=== PATIENT | female | born 1955 | race Caucasian/White ===

== ENCOUNTER 2017-08-28 15:19 | Emergency (ER) | payer OTHER ==
[~2017-08-28] VITALS: Ht 167.6 cm; Wt 86.2 kg
[~2017-08-28 15:19] MED LIST: ASPI81CH43; ATEN-60; CYCL-181; LEVO137T19; NORTRIPTYLINE; OVAR; PANTPAK; PREDPOW63; PREMARIN; PROVASTATIN
[2017-08-28 16:17] LABS: Albumin 3.8 g/dL (3.4-5.0); Alkaline Phosphatase 94 U/L (45-117); Anion Gap 9 (5-15); Aspartate Aminotransferase 44 U/L (15-37); BUN/Creatinine Ratio 17.4; Bilirubin, Total 0.3 mg/dL (0.2-1.0); Blood Urea Nitrogen 12 mg/dL (7-18); Calcium 9.3 mg/dL (8.5-10.1); Carbon Dioxide 22 mmol/L (21-32); Chloride 105 mmol/L (98-107); GFR African American 111 mL/min; GFR Non-African American 92 mL/min; Glucose 104 mg/dL (74-106); Potassium 3.8 mmol/L (3.5-5.1); Sodium 136 mmol/L (136-145); Total Protein 7.7 g/dL (6.4-8.2)
[2017-08-28 16:28] LABS: Basophils # (auto) 0 uL; Basophils % (auto) 0.3 % (0.0-2.0); Eosinophils # (auto) 0 uL; Eosinophils % (auto) 0.5 % (0.0-7.0); Hematocrit 41.5 % (36.0-46.0); Hemoglobin 14.1 g/dL (12.2-16.2); Lymphocytes # (auto) 1.4 uL; Lymphocytes % (auto) 15.9 % (10.0-50.0); Mean Corpuscular Hemoglobin 30.6 pg (28.0-32.0); Mean Platelet Volume 7.1 fL (6.9-10.8); Monocytes # (auto) 0.5 uL; Monocytes % (auto) 6.3 % (0.0-12.0); Neutrophils # (auto) 6.6 uL; Nucleated Red Blood Cells % 0.1 %; Platelet Count (auto) 239 10^3/uL (140-450); Red Cell Distribution Width 13.5 % (11.8-14.3); White Blood Cell 8.5 10^3/uL (4.4-10.8)
[2017-08-28 18:03] LABS: Urine Bilirubin Negative (Negative); Urine Blood Negative /uL (Negative); Urine Color Yellow (Yellow); Urine Glucose Normal (Normal); Urine Ketone Negative (Negative); Urine Nitrite Negative (Negative); Urine RBC <1 /hpf (0 - 4); Urine Squamous Epithelial Cell FEW /hpf (<5); Urine Urobilinogen Normal (Negative); Urine pH 6.5 (5.0-8.0)
[2017-08-28] MEDS ORDERED: MORPHINE SULF INJ 2 MG/ML SYRINGE 1ML IV ONE (20:00)
[2017-08-28] MEDS ORDERED: ONDANSETRON HCL 4 MG/2 ML VIAL IV ONE (20:00)
[2017-08-28 21:42] VITALS: BP 168/88
== END 2017-08-28 21:57 | disposition home or self-care (01) ==
LOC: EDBD 15:19 → ER 15:19
DX: R00.0 Tachycardia, unspecified (principal); I25.10 Atherosclerotic heart disease of native coronary artery without angina pectoris; K21.9 Gastro-esophageal reflux disease without esophagitis; E78.5 Hyperlipidemia, unspecified; I10 Essential (primary) hypertension; E07.9 Disorder of thyroid, unspecified; Z90.710 Acquired absence of both cervix and uterus; Z88.1 Allergy status to other antibiotic agents; Z90.49 Acquired absence of other specified parts of digestive tract
CPT/HCPCS: 36415; 71010; 80053; 81001; 84484; 85025; 93005; 96374; 96375; 99285; J2270; J2405

== ENCOUNTER 2019-03-28 19:52 | Emergency (ER) | payer OTHER ==
[~2019-03-28] VITALS: Ht 167.6 cm; Wt 83.9 kg
[2019-03-28] MEDS ORDERED: ONDANSETRON HCL 4 MG/2 ML VIAL IV ONE (20:30)
[2019-03-28] MEDS ORDERED: MORPHINE SULFATE 4 MG/ML SYR/VIAL IV ONE (20:30)
[2019-03-28 22:55] LABS: Basophils # (auto) 0 uL; Basophils % (auto) 0.5 % (0.0-2.0); Eosinophils # (auto) 0.1 uL; Eosinophils % (auto) 0.9 % (0.0-7.0); Hematocrit 42.3 % (36.0-46.0); Hemoglobin 14.1 g/dL (12.2-16.2); Lymphocytes # (auto) 1.6 uL; Lymphocytes % (auto) 15.6 % (10.0-50.0); Mean Corpuscular Hemoglobin 30.2 pg (28.0-32.0); Mean Corpuscular Hgb Conc. 33.4 g/dL (32.0-36.0); Mean Corpuscular Volume 90.4 fL (80.0-100.0); Monocytes # (auto) 0.6 uL; Monocytes % (auto) 5.4 % (0.0-12.0); Neutrophils % (auto) 77.6 % (37.0-80.0); Nucleated Red Blood Cells % 0.1 %; Platelet Count (auto) 217 10^3/uL (140-450); Red Blood Cells 4.69 10^6/uL (4.0-5.20); Red Cell Distribution Width 13.9 % (11.8-14.3); White Blood Cell 10.2 10^3/uL (4.4-10.8)
[2019-03-28] MEDS ORDERED: SODIUM CHLORIDE 0.9% 500 ML IV ONE (22:59)
[2019-03-28] MEDS ORDERED: ASPirin 81 mg TAB PO ONE (23:00)
[2019-03-28] MEDS ORDERED: FAMOTIDINE 20 MG TAB PO ONE (23:00)
[2019-03-28 23:12] LABS: Potassium 4.1 mmol/L (3.5-5.1)
[2019-03-28 23:13] LABS: Albumin 3.7 g/dL (3.4-5.0); BUN/Creatinine Ratio 21.2; Calcium 9.3 mg/dL (8.5-10.1); Magnesium 2.4 mg/dL (1.6-2.6)
[2019-03-28 23:15] LABS: INR 0.89 (0.9-1.15); Partial Thromboplastin Time 30.8 sec (23.78-33.04); Prothrombin Time 9.6 sec (9.27-12.13)
[2019-03-28 23:17] LABS: Bilirubin, Total 0.3 mg/dL (0.2-1.0); Total Protein 7.4 g/dL (6.4-8.2)
[2019-03-29] MEDS ORDERED: IOHEXOL 350 MG/ML 100ML IJ ONE (04:45)
[2019-03-29] MEDS ORDERED: diphenhdrAMINE HCL 50 MG/1 ML VL IV ONE (05:00)
[2019-03-29] MEDS ORDERED: methylPREDNISolone SOD SUCC 125 MG/2 ML VL IV ONE (05:00)
[2019-03-29] MEDS ORDERED: ONDANSETRON HCL 4 MG/2 ML VIAL IV ONE (05:15)
[2019-03-29 06:34] VITALS: BP 135/88
== END 2019-03-29 08:24 | disposition home or self-care (01) ==
LOC: EDBD 19:52 → ER 19:59
DX: R07.89 Other chest pain (principal); I24.9 Acute ischemic heart disease, unspecified; I10 Essential (primary) hypertension; K21.9 Gastro-esophageal reflux disease without esophagitis; E78.5 Hyperlipidemia, unspecified; Z86.39 Personal history of other endocrine, nutritional and metabolic disease; Z90.49 Acquired absence of other specified parts of digestive tract; Z90.710 Acquired absence of both cervix and uterus; Z98.61 Coronary angioplasty status; J45.909 Unspecified asthma, uncomplicated; Z88.1 Allergy status to other antibiotic agents; Z88.2 Allergy status to sulfonamides; Z79.899 Other long term (current) drug therapy
CPT/HCPCS: 36415; 71045; 71275; 74018; 80053; 83690; 83735; 83880; 84484; 85025; 85379; 85610; 85730; 93005; 94761; 96374; 96375; 96376; 99285; J1200; J2270; J2405; J2930; Q9967; 96361

== ENCOUNTER 2022-05-18 08:02 | Emergency (ER) | payer OTHER ==
[~2022-05-18] VITALS: Ht 167.6 cm; Wt 79.8 kg
[2022-05-18] MEDS ORDERED: NITROGLYCERIN 0.4 MG SL TAB SL ONE (08:30)
[2022-05-18 08:41] LABS: Basophils # (auto) 0 10 ^3/uL (0-0.2); Basophils % (auto) 0.4 % (0.0-2.0); Eosinophils # (auto) 0 10 ^3/uL (0-0.8); Eosinophils % (auto) 0.5 % (0.0-7.0); Hematocrit 44.8 % (36.0-46.0); Hemoglobin 14.6 g/dL (12.2-16.2); Lymphocytes # (auto) 0.8 10 ^3/uL (0.4-5.4); Lymphocytes % (auto) 11.2 % (10.0-50.0); Mean Corpuscular Hemoglobin 29.9 pg (28.0-32.0); Mean Corpuscular Hgb Conc. 32.6 g/dL (32.0-36.0); Mean Corpuscular Volume 91.6 fL (80.0-100.0); Monocytes # (auto) 0.4 10 ^3/uL (0-1.3); Monocytes % (auto) 4.9 % (0.0-12.0); Neutrophils # (auto) 6.3 10 ^3/uL (1.6-8.6); Red Blood Cells 4.89 10^6/uL (4.0-5.20); Red Cell Distribution Width 13.2 % (11.8-14.3); White Blood Cell 7.6 10^3/uL (4.4-10.8)
[2022-05-18 08:57] LABS: Albumin 3.8 g/dL (3.4-5.0); Calcium 9.3 mg/dL (8.5-10.1); Magnesium 2.3 mg/dL (1.6-2.6); Potassium 3.8 mmol/L (3.5-5.1)
[2022-05-18 09:02] LABS: Bilirubin, Total 0.4 mg/dL (0.2-1.0); Total Protein 7.5 g/dL (6.4-8.2)
[2022-05-18 09:06] LABS: INR 1.01 (0.9-1.15); Partial Thromboplastin Time 30.5 sec (23.6-33.0)
[2022-05-18 09:54] LABS: Urine Bacteria NONE SEEN /hpf (None Seen); Urine Blood Negative /uL (Negative); Urine Specific Gravity 1.018 (1.001-1.035); Urine WBC <1 /hpf (0 - 5)
[2022-05-18 15:15] VITALS: BP 129/71
[2022-05-18] MEDS ORDERED: ALUM & MAG HYDROX-SIMETH LIQ(MAALOX) 30 ML PO ONE (15:15)
[2022-05-18] MEDS ORDERED: KETOROLAC TROMETH 30 MG/ML 1ML VIAL IV ONE (15:15)
[2022-05-18] MEDS ORDERED: LIDOCAINE VISCOUS 2% 15ML UD PO ONE (15:15)
[2022-05-18] MEDS ORDERED: DONNATAL 5ml ORAL Elix (BELLADONNA ALK-PHENOBARB) PO ONE (15:15)
== END 2022-05-18 16:04 | disposition home or self-care (01) ==
LOC: ER 08:02
DX: R07.89 Other chest pain (principal); I10 Essential (primary) hypertension; I25.10 Atherosclerotic heart disease of native coronary artery without angina pectoris; E78.5 Hyperlipidemia, unspecified; E03.9 Hypothyroidism, unspecified; K21.9 Gastro-esophageal reflux disease without esophagitis; Z90.49 Acquired absence of other specified parts of digestive tract; Z90.710 Acquired absence of both cervix and uterus; Z79.82 Long term (current) use of aspirin; Z79.899 Other long term (current) drug therapy; Z88.2 Allergy status to sulfonamides; Z88.1 Allergy status to other antibiotic agents; Z88.8 Allergy status to other drugs, medicaments and biological substances; Z20.822 Contact with and (suspected) exposure to COVID-19
CPT/HCPCS: 36415; 71045; 80053; 81001; 83735; 83880; 84443; 84484; 85025; 85610; 85730; 87426; 93005; 96374; 99285; J1885

== ENCOUNTER 2022-07-22 00:23 | Emergency (ER) | payer OTHER ==
[~2022-07-22] VITALS: Ht 167.6 cm; Wt 81.0 kg
[2022-07-22 01:34] LABS: Basophils # (auto) 0 10 ^3/uL (0-0.2); Basophils % (auto) 0.4 % (0.0-2.0); Eosinophils # (auto) 0.1 10 ^3/uL (0-0.8); Eosinophils % (auto) 0.7 % (0.0-7.0); Hematocrit 43.4 % (36.0-46.0); Hemoglobin 14.5 g/dL (12.2-16.2); Lymphocytes # (auto) 1.3 10 ^3/uL (0.4-5.4); Lymphocytes % (auto) 15.3 % (10.0-50.0); Mean Corpuscular Hemoglobin 30.1 pg (28.0-32.0); Mean Corpuscular Hgb Conc. 33.4 g/dL (32.0-36.0); Mean Corpuscular Volume 90.2 fL (80.0-100.0); Monocytes # (auto) 0.5 10 ^3/uL (0-1.3); Monocytes % (auto) 6.1 % (0.0-12.0); Neutrophils # (auto) 6.5 10 ^3/uL (1.6-8.6); Neutrophils % (auto) 77.5 % (37.0-80.0); Nucleated Red Blood Cells % 0.1 %; Red Blood Cells 4.82 10^6/uL (4.0-5.20); Red Cell Distribution Width 13.6 % (11.8-14.3); White Blood Cell 8.4 10^3/uL (4.4-10.8)
[2022-07-22 01:47] LABS: Albumin 4.2 g/dL (3.4-5.0); BUN/Creatinine Ratio 25.9; Calcium 9.5 mg/dL (8.5-10.1); Potassium 4.5 mmol/L (3.5-5.1)
[2022-07-22 01:50] LABS: Bilirubin, Total 0.3 mg/dL (0.2-1.0); Total Protein 7.4 g/dL (6.4-8.2)
[2022-07-22] MEDS ORDERED: IOHEXOL 300 MG/ML 100ML BOTTLE IJ ONE (08:43)
[2022-07-22] MEDS ORDERED: OLME20TA53 PO (12:07)
[2022-07-22 12:36] VITALS: BP 168/91
== END 2022-07-22 12:39 | disposition home or self-care (01) ==
LOC: ER 00:23
DX: R07.89 Other chest pain (principal); I10 Essential (primary) hypertension; J98.6 Disorders of diaphragm; J45.909 Unspecified asthma, uncomplicated; K21.9 Gastro-esophageal reflux disease without esophagitis; E78.5 Hyperlipidemia, unspecified; Z90.49 Acquired absence of other specified parts of digestive tract; Z88.1 Allergy status to other antibiotic agents; Z88.6 Allergy status to analgesic agent; Z98.61 Coronary angioplasty status; Z85.3 Personal history of malignant neoplasm of breast; Z88.8 Allergy status to other drugs, medicaments and biological substances
CPT/HCPCS: 36415; 71045; 74176; 80053; 83880; 84484; 85025; 93005

== ENCOUNTER 2023-05-18 14:56 | Emergency (ER) | payer OTHER ==
[~2023-05-18] VITALS: Ht 167.6 cm; Wt 84.5 kg
[~2023-05-18 14:56] MED LIST changes: +OLME20TA53 PO
[2023-05-18 15:56] LABS: Basophils # (auto) 0 10 ^3/uL (0-0.2); Basophils % (auto) 0.4 % (0.0-2.0); Eosinophils # (auto) 0.1 10 ^3/uL (0-0.8); Eosinophils % (auto) 1.3 % (0.0-7.0); Hematocrit 44.7 % (36.0-46.0); Lymphocytes # (auto) 1.6 10 ^3/uL (0.4-5.4); Lymphocytes % (auto) 19.5 % (10.0-50.0); Mean Corpuscular Hemoglobin 30.2 pg (28.0-32.0); Mean Corpuscular Hgb Conc. 33.6 g/dL (32.0-36.0); Mean Corpuscular Volume 89.8 fL (80.0-100.0); Monocytes # (auto) 0.6 10 ^3/uL (0-1.3); Monocytes % (auto) 7.6 % (0.0-12.0); Neutrophils # (auto) 5.8 10 ^3/uL (1.6-8.6); Neutrophils % (auto) 71.2 % (37.0-80.0); Nucleated Red Blood Cells % 0.1 %; Red Blood Cells 4.98 10^6/uL (4.0-5.20); Red Cell Distribution Width 13.3 % (11.8-14.3); White Blood Cell 8.2 10^3/uL (4.4-10.8)
[2023-05-18 16:17] LABS: Albumin 3.9 g/dL (3.4-5.0); Calcium 9.2 mg/dL (8.5-10.1); INR 0.99 (0.9-1.15); Magnesium 2.5 mg/dL (1.6-2.6); Partial Thromboplastin Time 30.6 SEC (24.5-34.5); Potassium 3.9 mmol/L (3.5-5.1)
[2023-05-18 16:20] LABS: Bilirubin, Total 0.3 mg/dL (0.2-1.0); Total Protein 7.2 g/dL (6.4-8.2)
[2023-05-18 16:33] LABS: Urine Bacteria NONE SEEN /hpf (None Seen); Urine Blood Negative /uL (Negative); Urine Specific Gravity 1.018 (1.001-1.035); Urine WBC 1 /hpf (0 - 5)
[2023-05-18] MEDS ORDERED: MECL1TAB31 PO (18:45)
[2023-05-18 19:45] VITALS: BP 137/79
== END 2023-05-18 19:50 | disposition home or self-care (01) ==
LOC: ER 14:56
DX: R42 Dizziness and giddiness (principal); J45.909 Unspecified asthma, uncomplicated; I25.10 Atherosclerotic heart disease of native coronary artery without angina pectoris; K21.9 Gastro-esophageal reflux disease without esophagitis; E78.5 Hyperlipidemia, unspecified; I10 Essential (primary) hypertension; Z85.9 Personal history of malignant neoplasm, unspecified; Z90.49 Acquired absence of other specified parts of digestive tract; Z90.710 Acquired absence of both cervix and uterus; Z98.890 Other specified postprocedural states
CPT/HCPCS: 36415; 70450; 70551; 71045; 80053; 81001; 82962; 83735; 83880; 84484; 85025; 85610; 85730; 93005

== ENCOUNTER 2023-06-14 10:02 | Inpatient (IN) | payer OTHER ==
[~2023-06-14] VITALS: Ht 198.1 cm; Wt 87.7 kg
[~2023-06-14 10:02] MED LIST changes: -ASPI81CH43; +ASPI81CH43 PO; +MECL1TAB31 PO
[2023-06-14 10:40] LABS: Basophils # (auto) 0 10 ^3/uL (0-0.2); Basophils % (auto) 0.3 % (0.0-2.0); Eosinophils # (auto) 0 10 ^3/uL (0-0.8); Eosinophils % (auto) 0.2 % (0.0-7.0); Hematocrit 42.4 % (36.0-46.0); Hemoglobin 14.3 g/dL (12.2-16.2); Lymphocytes # (auto) 1.2 10 ^3/uL (0.4-5.4); Lymphocytes % (auto) 15.4 % (10.0-50.0); Mean Corpuscular Hemoglobin 30.5 pg (28.0-32.0); Mean Corpuscular Hgb Conc. 33.7 g/dL (32.0-36.0); Mean Corpuscular Volume 90.4 fL (80.0-100.0); Monocytes # (auto) 0.4 10 ^3/uL (0-1.3); Monocytes % (auto) 4.6 % (0.0-12.0); Neutrophils # (auto) 6.4 10 ^3/uL (1.6-8.6); Neutrophils % (auto) 79.5 % (37.0-80.0); Nucleated Red Blood Cells % 0.2 %; Red Blood Cells 4.69 10^6/uL (4.0-5.20); Red Cell Distribution Width 13.3 % (11.8-14.3)
[2023-06-14 10:53] LABS: INR 0.98 (0.9-1.15); Prothrombin Time 10.3 sec (9.3-11.8)
[2023-06-14 11:00] LABS: Albumin 4.2 g/dL (3.4-5.0); Calcium 9.1 mg/dL (8.5-10.1); Magnesium 2.6 mg/dL (1.6-2.6); Potassium 3.8 mmol/L (3.5-5.1)
[2023-06-14] MEDS ORDERED: ASPirin 81 mg TAB PO ONE (11:00)
[2023-06-14] MEDS ORDERED: ONDANSETRON HCL 4 MG/2 ML VIAL IV ONE (11:00)
[2023-06-14] MEDS ORDERED: MORPHINE SULFATE INJ 2 MG/ml SYRG IV ONE (11:00)
[2023-06-14 11:06] LABS: BUN/Creatinine Ratio 24.2 (10.0-20.0); Bilirubin, Total 0.3 mg/dL (0.2-1.0); Total Protein 7.1 g/dL (6.4-8.2)
[2023-06-14 11:39] LABS: Urine Bacteria NONE SEEN /hpf (None Seen); Urine Blood Negative /uL (Negative); Urine Clarity Clear (Clear); Urine Color Yellow (Yellow); Urine Protein, UAD Negative (Negative); Urine Specific Gravity 1.012 (1.001-1.035); Urine Urobilinogen Normal (Negative); Urine WBC 2 /hpf (0 - 5)
[2023-06-14 12:19] VITALS: PULSE 56; RESP 14; O2SAT 98
[2023-06-14 14:04] LABS: COVID19 ANTIGEN SOFIA FIA NEGATIVE (NEGATIVE)
[2023-06-14] MEDS ORDERED: CYCLOBENZAPRINE HCL 10 MG TAB PO PRN (14:30)
[2023-06-14] MEDS ORDERED: HYDROcodone-ACET 5/325MG TAB PO PRN (14:30)
[2023-06-14] MEDS ORDERED: ONDANSETRON HCL 4 MG/2 ML VIAL IV PRN (14:30)
[2023-06-14] MEDS ORDERED: MORPHINE SULFATE INJ 2 MG/ml SYRG IV PRN (14:30)
[2023-06-14] MEDS ORDERED: NITROGLYCERIN 0.4 MG SL TAB SL PRN (14:30)
[2023-06-14] MEDS ORDERED: HYDROmorphone HCL 2 MG/ML VL/or syr IV PRN (14:30)
[2023-06-14] MEDS ORDERED: LEVOTHYROXINE SODIUM 50 MCG TAB PO ONE (15:15)
[2023-06-14] MEDS ORDERED: methylPREDNISolone SOD SUCC 40 MG/ML VL IV ONE (16:15)
[2023-06-14] MEDS ORDERED: NITROGLYCERIN 0.2MG/HR TOPICAL PATCH TD ONE (16:15)
[2023-06-14] MEDS ORDERED: CLOPIDOGREL 300 MG TAB PO ONE (16:15)
[2023-06-14 19:30] VITALS: PULSE 83; RESP 20; O2SAT 96
[2023-06-14] MEDS: ACETAMINOPHEN 325 MG TAB PO PRN (20:44)
[2023-06-14] MEDS ORDERED: PRAVASTATIN SODIUM 20 MG TAB PO SCH (22:00)
[2023-06-15] VITALS (11 sets, daily range): BP systolic 102–151; BP diastolic 63–74; PULSE 51–78; RESP 12–20; TEMP 97.6–98.7; O2SAT 92–96
[2023-06-15] MEDS: FAMOTIDINE (10MG/ML) 2ML VL IV SCH ×2 (00:44→10:42)
[2023-06-15] MEDS: diphenhdrAMINE HCL 50 MG/1 ML VL IV SCH ×2 (00:44→10:42)
[2023-06-15] MEDS: SODIUM CHLOR 0.9% PF (SALINE LOCK) 10ML VIAL/SYR IV SCH ×3 (01:13→14:00)
[2023-06-15] MEDS: ACETAMINOPHEN 325 MG TAB PO PRN (04:27)
[2023-06-15 06:42] LABS: Basophils # (auto) 0 10 ^3/uL (0-0.2); Basophils % (auto) 0.5 % (0.0-2.0); Eosinophils # (auto) 0.1 10 ^3/uL (0-0.8); Eosinophils % (auto) 1.1 % (0.0-7.0); Hematocrit 43.3 % (36.0-46.0); Hemoglobin 14.4 g/dL (12.2-16.2); Lymphocytes # (auto) 2.3 10 ^3/uL (0.4-5.4); Lymphocytes % (auto) 27.8 % (10.0-50.0); Mean Corpuscular Hemoglobin 30.3 pg (28.0-32.0); Mean Corpuscular Hgb Conc. 33.3 g/dL (32.0-36.0); Mean Corpuscular Volume 91.1 fL (80.0-100.0); Monocytes # (auto) 0.7 10 ^3/uL (0-1.3); Monocytes % (auto) 8.1 % (0.0-12.0); Neutrophils # (auto) 5.3 10 ^3/uL (1.6-8.6); Neutrophils % (auto) 62.5 % (37.0-80.0); Nucleated Red Blood Cells % 0.1 %; Red Blood Cells 4.76 10^6/uL (4.0-5.20); Red Cell Distribution Width 13.5 % (11.8-14.3); White Blood Cell 8.4 10^3/uL (4.4-10.8)
[2023-06-15 06:55] LABS: Potassium 3.5 mmol/L (3.5-5.1)
[2023-06-15 06:56] LABS: INR 1.03 (0.9-1.15); Partial Thromboplastin Time 30.2 SEC (24.5-34.5); Prothrombin Time 10.8 sec (9.3-11.8)
[2023-06-15 07:05] LABS: Albumin 3.6 g/dL (3.4-5.0); BUN/Creatinine Ratio 20.4 (10.0-20.0); Bilirubin, Total 0.4 mg/dL (0.2-1.0); Total Protein 6.8 g/dL (6.4-8.2)
[2023-06-15] MEDS ORDERED: methylPREDNISolone SOD SUCC 40 MG/ML VL IV SCH (10:00)
[2023-06-15] MEDS ORDERED: ENOXAPARIN SOD 40 MG/0.4 ML SYRINGE SC SCH (10:00)
[2023-06-15] MEDS ORDERED: ATENOLOL 25 MG TAB PO SCH (10:00)
[2023-06-15] MEDS: ASPirin 81 mg TAB PO SCH (10:39)
[2023-06-15] MEDS: CLOPIDOGREL BISULFATE 75 MG TAB PO SCH (10:39)
[2023-06-15] MEDS: LOSARTAN POTASSIUM 50 MG TAB PO SCH (10:41)
[2023-06-15] MEDS: PANTOPRAZOLE 40 MG TAB PO SCH (10:41)
[2023-06-15] MEDS ORDERED: LEVOTHYROXINE SODIUM 25 MCG TAB PO ONE (12:00)
[2023-06-15] MEDS ORDERED: ATORVASTATIN 20 MG TAB PO ONE (12:00)
[2023-06-15] MEDS ORDERED: GABAPENTIN 300 MG CAP PO ONE (12:00)
[2023-06-15] MEDS: GABAPENTIN 300 MG CAP PO SCH ×2 (14:00→22:17)
[2023-06-15] MEDS ORDERED: MIDAZOLAM HCL 2MG/2ML 2ml VIAL (1mg/ml) ONE (15:45)
[2023-06-15] MEDS ORDERED: SODIUM CHL 0.9% 0 ML ONE (15:45)
[2023-06-15] MEDS ORDERED: ANGIOMAX 250 MG VIAL IV ONE (15:45)
[2023-06-15] MEDS ORDERED: LIDOCAINE 2%HCL (LOCAL ANESTH.) INJ 20ML MDV ONE (15:46)
[2023-06-15] MEDS ORDERED: IOHEXOL 350 MG/ML 100ML IJ ONE ×2 (15:46→15:49)
[2023-06-15] MEDS ORDERED: HEPARIN SODIUM (PORCINE) 5000 UNITS/ML 1ML VIAL ONE (15:51)
[2023-06-15] MEDS ORDERED: fentaNYL CITRATE 100 MCG/2 ML VL ONE (15:51)
[2023-06-15] MEDS ORDERED: IODIXANOL 320MG/ML 100ML BTL IV ONE (15:51)
[2023-06-15] MEDS ORDERED: diphenhdrAMINE HCL 50 MG/1 ML VL ONE (16:04)
[2023-06-15] MEDS ORDERED: methylPREDNISolone SOD SUCC 125 MG/2 ML VL ONE (16:04)
[2023-06-15] MEDS ORDERED: DOCUSATE SOD 100 MG CAP PO ONE (16:30)
[2023-06-15] MEDS ORDERED: AML5T PO (18:37)
[2023-06-15] MEDS ORDERED: LEVO125T7 PO (18:39)
[2023-06-15] MEDS ORDERED: PANT40TA2 PO (18:40)
[2023-06-15] MEDS ORDERED: ROSU5TAB5 PO (18:41)
[2023-06-15] MEDS ORDERED: GABA-1250 PO (18:43)
[2023-06-15] MEDS ORDERED: BACL20TA PO (18:44)
[2023-06-15] MEDS ORDERED: HYDR-4798 PO (18:44)
[2023-06-15] MEDS ORDERED: DICY10CA PO (18:44)
[2023-06-15] MEDS ORDERED: HYDR-4924 PO (18:45)
[2023-06-15] MEDS ORDERED: EPIN0.1I11 IJ (18:46)
[2023-06-15] MEDS ORDERED: NITR0.4S29 SL (18:46)
[2023-06-15] MEDS ORDERED: MULT-1058 PO (18:48)
[2023-06-15] MEDS ORDERED: DOCU-94 PO (18:48)
[2023-06-15] MEDS ORDERED: ASCO500T11 PO (18:49)
[2023-06-15] MEDS ORDERED: CHOL20007 PO (18:49)
[2023-06-15] MEDS: ATORVASTATIN 20 MG TAB PO SCH (22:00)
[2023-06-16] MEDS: diphenhdrAMINE HCL 50 MG/1 ML VL IV SCH (00:04)
[2023-06-16] MEDS: ACETAMINOPHEN 325 MG TAB PO PRN ×2 (01:36→18:44)
[2023-06-16] MEDS: SODIUM CHLOR 0.9% PF (SALINE LOCK) 10ML VIAL/SYR IV SCH ×4 (01:40→22:07)
[2023-06-16 06:51] LABS: BUN/Creatinine Ratio 25.8 (10.0-20.0); Calcium 9.3 mg/dL (8.5-10.1)
[2023-06-16] MEDS: GABAPENTIN 300 MG CAP PO SCH ×3 (06:58→21:32)
[2023-06-16] MEDS ORDERED: LEVOTHYROXINE SODIUM 25 MCG TAB PO SCH (07:00)
[2023-06-16 08:00] VITALS: PULSE 55; RESP 18
[2023-06-16 09:00] VITALS: BP 115/80; PULSE 53; RESP 16; TEMP 97.3; O2SAT 95
[2023-06-16] MEDS: CLOPIDOGREL BISULFATE 75 MG TAB PO SCH (10:11)
[2023-06-16] MEDS: ASPirin 81 mg TAB PO SCH (10:16)
[2023-06-16] MEDS: LOSARTAN POTASSIUM 50 MG TAB PO SCH (10:16)
[2023-06-16] MEDS: PANTOPRAZOLE 40 MG TAB PO SCH (10:16)
[2023-06-16] MEDS: ATENOLOL 25 MG TAB PO SCH (10:17)
[2023-06-16] MEDS: DOCUSATE SOD 100 MG CAP PO PRN (14:26)
[2023-06-16] MEDS: diphenhdrAMINE HCL 25 MG CAP PO PRN ×2 (14:26→21:40)
[2023-06-16 17:00] VITALS: BP 114/62; PULSE 59; RESP 18; TEMP 97.9; O2SAT 97
[2023-06-16 20:00] VITALS: PULSE 59; PULSE 60; RESP 18
[2023-06-16] MEDS: ENOXAPARIN SOD 80 MG/0.8ML SYRINGE SC SCH (21:32)
[2023-06-16 22:00] VITALS: BP 109/54; PULSE 61; RESP 16; TEMP 97.6; O2SAT 95
[2023-06-16] MEDS: ATORVASTATIN 20 MG TAB PO SCH (22:00)
[2023-06-17] VITALS (7 sets, daily range): BP systolic 109–116; BP diastolic 46–65; PULSE 54–84; RESP 16–18; TEMP 97.6–98.7; O2SAT 95–98
[2023-06-17] MEDS: LEVOTHYROXINE SODIUM 112 MCG TAB PO SCH (06:51)
[2023-06-17] MEDS: GABAPENTIN 300 MG CAP PO SCH ×3 (06:51→21:47)
[2023-06-17] MEDS: LEVOTHYROXINE SODIUM 25 MCG TAB PO SCH (06:51)
[2023-06-17] MEDS: SODIUM CHLOR 0.9% PF (SALINE LOCK) 10ML VIAL/SYR IV SCH ×3 (06:52→21:48)
[2023-06-17] MEDS: ASPirin 81 mg TAB PO SCH (09:57)
[2023-06-17] MEDS: LOSARTAN POTASSIUM 50 MG TAB PO SCH (10:05)
[2023-06-17] MEDS: PANTOPRAZOLE 40 MG TAB PO SCH (10:06)
[2023-06-17] MEDS: CLOPIDOGREL BISULFATE 75 MG TAB PO SCH (10:06)
[2023-06-17] MEDS: ATENOLOL 25 MG TAB PO SCH (10:07)
[2023-06-17] MEDS: ENOXAPARIN SOD 80 MG/0.8ML SYRINGE SC SCH ×2 (10:07→21:48)
[2023-06-17] MEDS: DOCUSATE SOD 100 MG CAP PO PRN ×2 (13:30→20:20)
[2023-06-17] MEDS: ATORVASTATIN 20 MG TAB PO SCH (21:48)
[2023-06-17] MEDS: diphenhdrAMINE HCL 25 MG CAP PO PRN (22:57)
[2023-06-18] MEDS: ACETAMINOPHEN 325 MG TAB PO PRN (04:26)
[2023-06-18 04:45] VITALS: BP 108/48; PULSE 57; RESP 18; TEMP 98.6; O2SAT 95
[2023-06-18] MEDS: LEVOTHYROXINE SODIUM 112 MCG TAB PO SCH (06:06)
[2023-06-18] MEDS: LEVOTHYROXINE SODIUM 25 MCG TAB PO SCH (06:06)
[2023-06-18] MEDS: GABAPENTIN 300 MG CAP PO SCH ×2 (06:06→14:00)
[2023-06-18] MEDS: SODIUM CHLOR 0.9% PF (SALINE LOCK) 10ML VIAL/SYR IV SCH ×2 (06:09→14:00)
[2023-06-18 08:00] VITALS: PULSE 62; RESP 18
[2023-06-18 09:00] VITALS: BP 107/55; PULSE 58; RESP 19; TEMP 98.1; O2SAT 95
[2023-06-18] MEDS: ASPirin 81 mg TAB PO SCH (10:44)
[2023-06-18] MEDS: LOSARTAN POTASSIUM 50 MG TAB PO SCH (10:44)
[2023-06-18] MEDS: CLOPIDOGREL BISULFATE 75 MG TAB PO SCH (10:44)
[2023-06-18] MEDS: PANTOPRAZOLE 40 MG TAB PO SCH (10:44)
[2023-06-18] MEDS: ATENOLOL 25 MG TAB PO SCH (10:45)
[2023-06-18] MEDS: DOCUSATE SOD 100 MG CAP PO PRN (10:52)
[2023-06-18 12:07] VITALS: BP 107/55; PULSE 58; TEMP 36.7
[2023-06-18 12:50] VITALS: BP 119/69; PULSE 51; RESP 17; TEMP 97.9; O2SAT 93
== END 2023-06-18 14:50 | disposition home or self-care (01) | DRG 287 ==
LOC: ER 10:02 → TELE 14:27 → TELE-WESTW 22:31
PROVIDERS: ADMIT Internal Medicine; ATTEND Student in an Organized Health Care Education/Training Program
PROC: B211YZZ Fluoroscopy of Multiple Coronary Arteries using Other Contrast (ICD-10-PCS; principal; 2023-06-14)
PROC: 4A023N7 Measurement of Cardiac Sampling and Pressure, Left Heart, Percutaneous Approach (ICD-10-PCS; 2023-06-14)
DX: I24.9 Acute ischemic heart disease, unspecified (principal); E88.40 Mitochondrial metabolism disorder, unspecified; I50.32 Chronic diastolic (congestive) heart failure; I42.9 Cardiomyopathy, unspecified; I25.10 Atherosclerotic heart disease of native coronary artery without angina pectoris; E66.9 Obesity, unspecified; E03.9 Hypothyroidism, unspecified; E78.5 Hyperlipidemia, unspecified; K21.9 Gastro-esophageal reflux disease without esophagitis; I11.0 Hypertensive heart disease with heart failure; K74.60 Unspecified cirrhosis of liver; J45.909 Unspecified asthma, uncomplicated; Z20.822 Contact with and (suspected) exposure to COVID-19; Z88.0 Allergy status to penicillin; Z98.61 Coronary angioplasty status; Z88.2 Allergy status to sulfonamides; Z88.8 Allergy status to other drugs, medicaments and biological substances; Z88.1 Allergy status to other antibiotic agents; Z91.041 Radiographic dye allergy status; Z79.82 Long term (current) use of aspirin; Z79.899 Other long term (current) drug therapy; Z90.49 Acquired absence of other specified parts of digestive tract; Z90.710 Acquired absence of both cervix and uterus; Z68.22 Body mass index [BMI] 22.0-22.9, adult; Z85.3 Personal history of malignant neoplasm of breast; Z90.13 Acquired absence of bilateral breasts and nipples
CPT/HCPCS: 36415; 36600; 71045; 76937; 78582; 80048; 80053; 81001; 82805; 83036; 83735; 83880; 84443; 84484; 85025; 85379; 85610; 85730; 86850; 86900; 86901; 87426; 93005; 93306; 93458; 93970; 96374; 96376; 99152; 99291; G0378; J2250; J2405; J3490; Q9967

== ENCOUNTER 2023-06-24 20:42 | Emergency (ER) | payer OTHER ==
[~2023-06-24] VITALS: Ht 165.1 cm; Wt 81.8 kg
[~2023-06-24 20:42] MED LIST changes: +AML5T PO; +ASCO500T11 PO; +BACL20TA PO; +CHOL20007 PO; -CYCL-181; +DICY10CA PO; +DOCU-94 PO; +EPIN0.1I11 IJ; +GABA-1250 PO; +HYDR-4798 PO; +HYDR-4924 PO; +LEVO125T7 PO; -LEVO137T19; -MECL1TAB31 PO; +MULT-1058 PO; +NITR0.4S29 SL; -NORTRIPTYLINE; -OLME20TA53 PO; -OVAR; +PANT40TA2 PO; -PANTPAK; -PREDPOW63; -PREMARIN; -PROVASTATIN; +ROSU5TAB5 PO
[2023-06-24] MEDS ORDERED: IBUPROFEN 600 MG TAB PO ONE (21:45)
[2023-06-24 21:59] LABS: Basophils # (auto) 0 10 ^3/uL (0-0.2); Basophils % (auto) 0.3 % (0.0-2.0); Eosinophils # (auto) 0 10 ^3/uL (0-0.8); Eosinophils % (auto) 0.2 % (0.0-7.0); Hematocrit 41.1 % (36.0-46.0); Hemoglobin 13.6 g/dL (12.2-16.2); Lymphocytes # (auto) 0.7 10 ^3/uL (0.4-5.4); Lymphocytes % (auto) 6.3 % (10.0-50.0); Mean Corpuscular Hemoglobin 29.6 pg (28.0-32.0); Mean Corpuscular Hgb Conc. 33.1 g/dL (32.0-36.0); Mean Corpuscular Volume 89.3 fL (80.0-100.0); Monocytes # (auto) 0.7 10 ^3/uL (0-1.3); Monocytes % (auto) 6.5 % (0.0-12.0); Neutrophils % (auto) 86.7 % (37.0-80.0); Nucleated Red Blood Cells % 0.1 %; Red Blood Cells 4.61 10^6/uL (4.0-5.20); Red Cell Distribution Width 13.5 % (11.8-14.3); White Blood Cell 11.5 10^3/uL (4.4-10.8)
[2023-06-24 22:17] LABS: Albumin 3.9 g/dL (3.4-5.0); Calcium 9.1 mg/dL (8.5-10.1); Potassium 4.2 mmol/L (3.5-5.1)
[2023-06-24 22:21] LABS: BUN/Creatinine Ratio 20.4 (10.0-20.0); Bilirubin, Total 0.5 mg/dL (0.2-1.0); Total Protein 6.9 g/dL (6.4-8.2)
[2023-06-24 22:51] LABS: COVID19 ANTIGEN SOFIA FIA NEGATIVE (NEGATIVE)
[2023-06-24 23:14] LABS: Urine WBC None Seen /hpf (0 - 5)
[2023-06-24 23:22] LABS: Urine Bacteria FEW /hpf (None Seen); Urine Blood Negative /uL (Negative); Urine Clarity Clear (Clear); Urine Color Yellow (Yellow); Urine Protein, UAD Negative (Negative); Urine Specific Gravity 1.002 (1.001-1.035); Urine Urobilinogen Normal (Negative)
[2023-06-24] MEDS ORDERED: MAALOX PLUS or MAALOX 30 ML PO ONE (23:45)
[2023-06-25 01:30] VITALS: BP 112/54; TEMP 97.9
[2023-06-25 01:35] VITALS: PULSE 64; RESP 16; O2SAT 95
[2023-06-25] MEDS ORDERED: ACETAMINOPHEN 325 MG TAB PO ONE (03:00)
[2023-06-25] MEDS ORDERED: guaiFENesin-DM 100/10mg/5ml SYR PO ONE (03:45)
[2023-06-25] MEDS ORDERED: DexAMETHasone 4 MG TAB PO ONE (03:45)
[2023-06-25] MEDS ORDERED: AZITHROMYCIN 250 MG TAB PO ONE (03:45)
== END 2023-06-25 04:11 | disposition home or self-care (01) ==
LOC: ER 20:42 → EDBD 20:42 → ER 06-25 03:40
DX: B34.9 Viral infection, unspecified (principal); R06.02 Shortness of breath; K21.9 Gastro-esophageal reflux disease without esophagitis; E78.5 Hyperlipidemia, unspecified; I10 Essential (primary) hypertension; J45.909 Unspecified asthma, uncomplicated; Z90.49 Acquired absence of other specified parts of digestive tract; Z90.710 Acquired absence of both cervix and uterus; Z20.822 Contact with and (suspected) exposure to COVID-19; Z88.1 Allergy status to other antibiotic agents; Z88.2 Allergy status to sulfonamides; Z88.6 Allergy status to analgesic agent; Z91.041 Radiographic dye allergy status
CPT/HCPCS: 36415; 71045; 80053; 81001; 83880; 84484; 85025; 87426; 93005

== ENCOUNTER 2024-04-05 21:18 | Emergency (ER) | payer OTHER ==
[~2024-04-05] VITALS: Ht 167.6 cm; Wt 83.5 kg
[2024-04-05 21:52] VITALS: O2SAT 94
[2024-04-05 21:57] VITALS: BP 139/69; PULSE 75; RESP 16; TEMP 98.2; O2SAT 95
[2024-04-05 22:10] LABS: Basophils # (auto) 0 10 ^3/uL (0-0.2); Basophils % (auto) 0.4 % (0.0-2.0); Eosinophils # (auto) 0.1 10 ^3/uL (0-0.8); Eosinophils % (auto) 0.7 % (0.0-7.0); Hematocrit 45.9 % (36.0-46.0); Hemoglobin 15.1 g/dL (12.2-16.2); Lymphocytes # (auto) 1.5 10 ^3/uL (0.4-5.4); Lymphocytes % (auto) 15.2 % (10.0-50.0); Mean Corpuscular Hemoglobin 30.1 pg (28.0-32.0); Mean Corpuscular Volume 91.1 fL (80.0-100.0); Monocytes # (auto) 0.7 10 ^3/uL (0-1.3); Neutrophils # (auto) 7.4 10 ^3/uL (1.6-8.6); Neutrophils % (auto) 76.7 % (37.0-80.0); Nucleated Red Blood Cells % 0.1 %; Red Blood Cells 5.03 10^6/uL (4.0-5.20); Red Cell Distribution Width 13.3 % (11.8-14.3); White Blood Cell 9.6 10^3/uL (4.4-10.8)
[2024-04-05 22:11] LABS: Chloride 106 mmol/L (98-107); Potassium 4.1 mmol/L (3.5-5.1); Sodium 135 mmol/L (136-145)
[2024-04-05 22:12] LABS: Anion Gap 6 (5-15); Calcium 10.4 mg/dL (8.5-10.1); Carbon Dioxide 23 mmol/L (20-30)
[2024-04-05 22:17] LABS: BUN/Creatinine Ratio 13.8 (10.0-20.0); Blood Urea Nitrogen 9 mg/dL (9-23); Glucose 97 mg/dL (74-106)
== END 2024-04-05 23:22 | disposition home or self-care (01) ==
LOC: EDBD 21:18 → ER 21:18
DX: R06.00 Dyspnea, unspecified (principal); I10 Essential (primary) hypertension; E78.5 Hyperlipidemia, unspecified; K21.9 Gastro-esophageal reflux disease without esophagitis; J45.909 Unspecified asthma, uncomplicated; I25.10 Atherosclerotic heart disease of native coronary artery without angina pectoris; Z85.9 Personal history of malignant neoplasm, unspecified; Z98.890 Other specified postprocedural states
CPT/HCPCS: 36415; 71045; 80048; 83880; 84484; 85025; 93005

== ENCOUNTER 2024-06-23 23:11 | Emergency (ER) | payer OTHER ==
[~2024-06-23] VITALS: Ht 167.6 cm; Wt 81.0 kg
[2024-06-23] MEDS: DexAMETHasone SOD PHOS 10MG/1ML VIAL INJ IM ONE (23:45)
[2024-06-24 00:12] LABS: Basophils # (auto) 0 10 ^3/uL (0-0.2); Basophils % (auto) 0.3 % (0.0-2.0); Eosinophils # (auto) 0.1 10 ^3/uL (0-0.8); Eosinophils % (auto) 1.2 % (0.0-7.0); Hematocrit 44.4 % (36.0-46.0); Hemoglobin 14.8 g/dL (12.2-16.2); Lymphocytes # (auto) 1.6 10 ^3/uL (0.4-5.4); Lymphocytes % (auto) 21.7 % (10.0-50.0); Mean Corpuscular Hemoglobin 30.5 pg (28.0-32.0); Mean Corpuscular Hgb Conc. 33.4 g/dL (32.0-36.0); Mean Corpuscular Volume 91.4 fL (80.0-100.0); Monocytes # (auto) 0.5 10 ^3/uL (0-1.3); Neutrophils % (auto) 69.8 % (37.0-80.0); Red Blood Cells 4.86 10^6/uL (4.0-5.20); Red Cell Distribution Width 12.9 % (11.8-14.3); White Blood Cell 7.1 10^3/uL (4.4-10.8)
[2024-06-24 00:16] VITALS: PULSE 83; RESP 20; O2SAT 95
[2024-06-24 00:23] LABS: Alanine Aminotransferase 41 U/L (7-40); Albumin 4.5 g/dL (3.2-4.8); Alkaline Phosphatase 87 U/L (46-116); Anion Gap 11 (5-15); Aspartate Aminotransferase 40 U/L (13-40); BUN/Creatinine Ratio 16.3 (10.0-20.0); Blood Urea Nitrogen 8 mg/dL (9-23); Calcium 10.1 mg/dL (8.7-10.4); Carbon Dioxide 22 mmol/L (20-30); Chloride 104 mmol/L (98-107); Glucose 117 mg/dL (74-106); Lipase 35 U/L (12-53); Potassium 3.9 mmol/L (3.5-5.1); Sodium 137 mmol/L (136-145)
[2024-06-24 00:24] LABS: Bilirubin, Total 0.4 mg/dL (0.2-1.0); Total Protein 7.2 g/dL (5.7-8.2)
[2024-06-24] MEDS: diphenhdrAMINE HCL 50 MG/1 ML VL IM ONE (00:26)
[2024-06-24 02:50] VITALS: BP 110/53; PULSE 60; RESP 17; TEMP 98.4; O2SAT 97
== END 2024-06-24 03:08 | disposition home or self-care (01) ==
LOC: EDBD 23:11 → ER 23:11
DX: R07.89 Other chest pain (principal); T78.1XXA Other adverse food reactions, not elsewhere classified, initial encounter; I10 Essential (primary) hypertension; I25.10 Atherosclerotic heart disease of native coronary artery without angina pectoris; E78.5 Hyperlipidemia, unspecified; K21.9 Gastro-esophageal reflux disease without esophagitis; J45.909 Unspecified asthma, uncomplicated; Z85.9 Personal history of malignant neoplasm, unspecified; Z98.890 Other specified postprocedural states; Z88.8 Allergy status to other drugs, medicaments and biological substances; Z91.041 Radiographic dye allergy status; Z79.899 Other long term (current) drug therapy; X58.XXXA Exposure to other specified factors, initial encounter
CPT/HCPCS: 36415; 71045; 80053; 83605; 83690; 83880; 84484; 85025; 93005; 96372; 99285; J1200

== ENCOUNTER 2024-08-06 07:26 | Emergency (ER) | payer OTHER ==
[~2024-08-06] VITALS: Ht 167.6 cm; Wt 83.6 kg
[2024-08-06 08:06] LABS: Basophils # (auto) 0 10 ^3/uL (0-0.2); Basophils % (auto) 0.5 % (0.0-2.0); Eosinophils # (auto) 0.1 10 ^3/uL (0-0.8); Eosinophils % (auto) 1.5 % (0.0-7.0); Hematocrit 47.2 % (36.0-46.0); Lymphocytes # (auto) 1.4 10 ^3/uL (0.4-5.4); Lymphocytes % (auto) 19.1 % (10.0-50.0); Mean Corpuscular Hemoglobin 30.9 pg (28.0-32.0); Mean Corpuscular Hgb Conc. 33.9 g/dL (32.0-36.0); Mean Corpuscular Volume 91.2 fL (80.0-100.0); Monocytes # (auto) 0.5 10 ^3/uL (0-1.3); Monocytes % (auto) 6.5 % (0.0-12.0); Neutrophils # (auto) 5.4 10 ^3/uL (1.6-8.6); Neutrophils % (auto) 72.4 % (37.0-80.0); Platelet Count (auto) 245 10^3/uL (140-450); Red Blood Cells 5.18 10^6/uL (4.0-5.20); Red Cell Distribution Width 13.3 % (11.8-14.3); White Blood Cell 7.5 10^3/uL (4.4-10.8)
[2024-08-06 08:22] LABS: Alanine Aminotransferase 47 U/L (7-40); Albumin 5.1 g/dL (3.2-4.8); Alkaline Phosphatase 88 U/L (46-116); Anion Gap 7 (5-15); Aspartate Aminotransferase 34 U/L (13-40); BUN/Creatinine Ratio 20.7 (10.0-20.0); Bilirubin, Total 0.6 mg/dL (0.2-1.0); Blood Urea Nitrogen 12 mg/dL (9-23); Calcium 10.8 mg/dL (8.7-10.4); Carbon Dioxide 27 mmol/L (20-30); Chloride 104 mmol/L (98-107); Glucose 113 mg/dL (74-106); Sodium 138 mmol/L (136-145); Total Protein 7.4 g/dL (5.7-8.2)
[2024-08-06] MEDS: SODIUM CHLORIDE 0.9% 500 ML IVB ONE (08:26)
[2024-08-06 08:33] LABS: Magnesium 2.2 mg/dL (1.6-2.6)
[2024-08-06 08:45] LABS: Urine Bacteria FEW /hpf (None Seen); Urine Blood Negative /uL (Negative); Urine Clarity Turbid (Clear); Urine Color Yellow (Yellow); Urine Mucus FEW (None Seen); Urine Protein, UAD Negative (Negative); Urine Specific Gravity 1.019 (1.001-1.035); Urine Urobilinogen Normal (Negative); Urine WBC 2 /hpf (0 - 5); Urine pH 7.5 (5.0-9.0)
[2024-08-06] MEDS ORDERED: BISM262C44 PO (12:03)
[2024-08-06] MEDS ORDERED: METO-281 PO (12:03)
[2024-08-06 12:15] VITALS: BP 138/59; PULSE 64; RESP 17; TEMP 98.1; O2SAT 97
== END 2024-08-06 12:43 | disposition home or self-care (01) ==
LOC: ER 07:26
DX: R00.2 Palpitations (principal); K52.9 Noninfective gastroenteritis and colitis, unspecified; K90.49 Malabsorption due to intolerance, not elsewhere classified; R42 Dizziness and giddiness; K21.9 Gastro-esophageal reflux disease without esophagitis; E78.5 Hyperlipidemia, unspecified; I10 Essential (primary) hypertension; J45.909 Unspecified asthma, uncomplicated; Z88.1 Allergy status to other antibiotic agents; Z88.6 Allergy status to analgesic agent; Z88.2 Allergy status to sulfonamides; Z90.49 Acquired absence of other specified parts of digestive tract; Z90.710 Acquired absence of both cervix and uterus; Z91.041 Radiographic dye allergy status; Z98.61 Coronary angioplasty status; Z85.3 Personal history of malignant neoplasm of breast
CPT/HCPCS: 36415; 71046; 74176; 80053; 81001; 83690; 83735; 84443; 84484; 85025; 93005; 96360; 99285; J7040

== ENCOUNTER 2025-06-30 12:33 | Emergency (ER) | payer OTHER ==
[~2025-06-30] VITALS: Ht 167.6 cm; Wt 83.5 kg
[~2025-06-30 12:33] MED LIST changes: +BISM262C44 PO; +METO-281 PO
--- NOTE | 2025-06-30 14:06 | DVH ---
EXAM: XY CHEST PORTABLE HISTORY: CP, DIZZY COMPARISON: XY CHEST TWO VIEWS ROUTINE on DOS: 08/06/24, XY CHEST PORTABLE on DOS: 06/24/24, XY CHEST PO RTABLE on DOS: 04/05/24, XY CHEST PORTABLE on DOS: 06/24/23, XY CHEST PORTABLE on DOS: 06/16/23 TECHNIQUE: Portable AP view of the chest was performed. FINDINGS: No pneumothorax, consolidative infiltrates, or pulmonary edema. There is mild relative elevation of t he left hemidiaphragm. The heart is not enlarged. There is thoracic degenerative disc disease. There is mild thoracic dextroscoliosis. IMPRESSION: No acute intrathoracic process.
[2025-06-30 14:16] LABS: Hematocrit 44.4 % (36.0-46.0); Hemoglobin 15.0 g/dL (12.2-16.2); Mean Corpuscular Hemoglobin 30.2 pg (28.0-32.0); Mean Corpuscular Volume 89.6 fL (80.0-100.0); Nucleated Red Blood Cells % 0.1 %
--- NOTE | 2025-06-30 14:19 | DVH ---
EXAM: CT HEAD WITHOUT CONTRAST INDICATION: CP, DIZZY TECHNIQUE: CT of the head without intravenous contrast. Radiation Dose : 1. Head: CT Dose: CTDI volume is 55 mGy. Dose-length product is 1089.1 mGy*cm The dose indicators for CT are the volume Computed Tomography (CT) Dose Index (CTDIvol) and the Dose Length Product (DLP), and are measured in units of mGy and mGy-cm, respectively. These indicators are not patient dose, but values generated from the CT scanner acquisition factors. The report includes radiation exposure data for exposures received during this examination. COMPARISON: CT HEAD WITHOUT CONTRAST on DOS: 05/18/23, MRI BRAIN HEAD WO CONTRAST on DOS: 05/18/23 FINDINGS: There is no evidence of acute intracranial hemorrhage, extra-axial collection, mass effect, midline s hift, herniation or hydrocephalus. The ventricles, sulci and cisterns are age appropriate. The jimenez-white differentiation is intact. The visualized paranasal sinuses and mastoid air cells are clear. The surrounding soft tissues and osseous structures are unremarkable. IMPRESSION: No acute intracranial abnormality. Radiation optimization: All CT scans at this facility use at least one of these dose optimization edilberto hniques: automated exposure control mA and/or kV adjustment per patient size (includes targeted exam s where dose is matched to clinical indication) or iterative reconstruction.
[2025-06-30 14:34] LABS: Alanine Aminotransferase 40 U/L (7-40); Albumin 5.0 g/dL (3.2-4.8); Alkaline Phosphatase 95 U/L (46-116); Anion Gap 9 (5-15); BUN/Creatinine Ratio 14.8 (10.0-20.0); Blood Urea Nitrogen 9 mg/dL (9-23); Calcium 10.0 mg/dL (8.7-10.4); Carbon Dioxide 25 mmol/L (20-31); Chloride 104 mmol/L (98-107); Glucose 96 mg/dL (74-106); Magnesium 2.3 mg/dL (1.6-2.6); Potassium 3.9 mmol/L (3.5-5.1); Sodium 138 mmol/L (136-145); Total Protein 7.4 g/dL (5.7-8.2)
[2025-06-30 14:35] LABS: Bilirubin, Total 0.3 mg/dL (0.2-1.0)
[2025-06-30] MEDS: SODIUM CHLORIDE 0.9% 1,000 ML IV ONE (15:00)
--- NOTE | 2025-06-30 15:08 | ED.PDOC ---
HPI (NEURO) HPI Comments 69-year-old female presents with a chief complaint of dizziness, chest pressure, and nausea. Patient mentions that she feels "off-balance" even when her head is not moving. Patient also states that she has been having intermittent chest pressure for the past 2 weeks. Patient does have history of CAD with stent placement. Patient is currently on Macrobid for a UTI. PMHx: HTN, HLD, Thyroid Disease, UTI's, GERD, Asthma, CAD, Cancer PSHx: PTCA, Bladder Suspension, Mastectomy, Cholecystectomy, Appendectomy, Hysterectomy HPI: Poor Historian. Past Medical History: REVIEW OF SYSTEMS: CONSTITUTIONAL: Denies acute: fever, diaphoresis, chills, generalized weakness. HEAD: Denies acute: headache, photophobia Eyes: Denies acute: Double vision, vision loss, eye pain, eye discharge. EARS: Denies acute: tinnitus, hearing loss, ear discharge, ear pain, THROAT: Denies acute: sore throat, swelling, difficulty swallowing , pain with swallowing, change in voice. NECK: Denies acute: neck pain, neck swelling, stiff neck. HEART: Denies acute : palpitations, LUNGS: Denies acute: SOB, wheezing, cough, hemoptysis ABDOMEN: Denies acute: abdominal pain, Nausea, Vomiting, diarrhea, melena , hematemesis, hematochezia SKIN: Denies acute: rash, redness, lesions, itchiness. EXTREMITIES: Denies acute: calf pain, numbness, tingling, weakness, denies pain in extremity. Denies acute: Low back pain. Neuro: Denies acute: focal neurological deficit, motor or sensory focal neurological deficit, tremors, seizure like activity, confusion, change in mental status, loss of bowel or bladder function, cauda equina like symptoms. : Denies acute: dysuria, hematuria, flank pain, increase in urinary frequency. PSYCH: Denies acute: hallucination, suicidal ideation, homicidal ideation. FEMALE: Denies acute: abnormal vaginal bleeding, foul odor, unusual discharge. PHYSICAL EXAM: General: ----mild----acute distress, awake and alert. Head: normocephalic, atraumatic. Neck: supple, trachea is midline, no swelling. Throat: Normal phonation. Eyes:, no erythema, no purulent discharge, no proptosis, no icterus. Heart: regular rate, regular rhythm, no significant murmur appreciated. Lungs: no apparent respiratory distress, Able to speak in full sentences. No wheezing, no rhonchi, no crackles. No stridors Clear to auscultation bilaterally. Abdomen: non tender to palpation, non distended, soft, no guarding, no rebound, + bowel sounds. Obese Neuro: Awake, Alert, oriented to name, self, situation, follows commands GCS=15. Speech is normal. Skin: no petechia, no purpura, no cyanosis, non-pale, not jaundice. Lower extremities: --no - Pitting edema no deformity, no focal swelling, no calf TTP. Makes eye contact. moves all four extremities. Face: no apparent facial droop. Ambulating in the ED independently. PERRLA, EOM-I CN 2-12 are grossly intact, No nystagmus. ED COURSE: DISCLAIMER: This medical document was created using an electronic medical record system with voice recognition software and computerized dictation system. Although this document has been carefully reviewed, there might still be some phonetic and ty pographical errors. Occasional wrong-word or "sound-alike" substitutions may have occurred due to the inherent limitations of voice recognition software. These areas are purely typographical due to imperfections of the software programs and do not reflect any compromise in the patient's medical care. Please read the chart carefully and recognize, using context, where these substitutions have occurred. 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 Was a procedure done?: No Differential Diagnosis (SZ) General Weakness: Anemia, CVA, Dehydration, Dysrhythmia, Electrolyte imbalance, Encephalopathy, Guillain-Blessing, Hypoglycemia, Hypotension, Hypovolemia, Laby rinthitis, Meniere's disease, Myasthenia gravis, Myocardial infarction, Pulmonary embolus, Renal failure, Repiratory failure, TIA, VBI, Vertigo: central, Vertigo: peripheral, Vestibular neuronitis, Other (As far as his chest pain, Ddx include but not limitied to gastritis, musculoskeletal pain, radiculopathy, atypical chest pain, dissection, aneurysm, ACS, unstable angina, hiatal hernia, GERD, anxiety, costochondritis, PE, pneumothroax, neoplasm, cardiac ischemia, drug abuse, anemia.) X-Ray, Labs, Meds, VS Vital Signs Date Time Temp Pulse Resp B/P (MAP) Pulse Ox O2 Delivery O2 Flow Rate FiO2 06/30/25 19:35 98.1 84 17 158/70 (99) 96 98.1 06/30/25 18:34 97.9 74 16 109/82 (91) 96 97.9 06/30/25 12:45 76 06/30/25 12:34 97.8 87 13 157/75 97 97.8 Lab Test 06/30/25 17:57 06/30/25 15:29 06/30/25 14:02 06/30/25 12:40 Range/Units Troponin I High Sensitivity 3 L 4 4 </=34 ng/L White Blood Count 7.7 4.4-10.8 10^3/uL Red Blood Count 4.95 4.0-5.20 10^6/uL Hemoglobin 15.0 12.2-16.2 g/dL Hematocrit 44.4 36.0-46.0 % Mean Corpuscular Volume 89.6 80.0-100.0 fL Mean Corpuscular Hemoglobin 30.2 28.0-32.0 pg Mean Corpuscular Hemoglobin Concent 33.7 32.0-36.0 g/dL Red Cell Distribution Width 13.2 11.8-14.3 % Platelet Count 236 140-450 10^3/uL Mean Platelet Volume 6.5 L 6.9-10.8 fL Neutrophils (%) (Auto) 74.7 37.0-80.0 % Lymphocytes (%) (Auto) 15.9 10.0-50.0 % Monocytes (%) (Auto) 8.2 0.0-12.0 % Eosinophils (%) (Auto) 0.9 0.0-7.0 % Basophils (%) (Auto) 0.3 0.0-2.0 % Neutrophils # (Auto) 5.7 1.6-8.6 10 ^3/uL Lymphocytes # (Auto) 1.2 0.4-5.4 10 ^3/uL Monocytes # (Auto) 0.6 0-1.3 10 ^3/uL Eosinophils # (Auto) 0.1 0-0.8 10 ^3/uL Basophils # (Auto) 0 0-0.2 10 ^3/uL Nucleated Red Blood Cells 0.1 % Sodium Level 138 136-145 mmol/L Potassium Level 3.9 3.5-5.1 mmol/L Chloride Level 104 98-107 mmol/L Carbon Dioxide Level 25 20-31 mmol/L Anion Gap 9 5-15 Blood Urea Nitrogen 9 9-23 mg/dL Creatinine 0.61 0.550-1.02 mg/dL Glomerular Filtration Rate Calc 96 >90 mL/min BUN/Creatinine Ratio 14.8 10.0-20.0 Serum Glucose 96 74-106 mg/dL Lactic Acid Level 1.5 0.4-2.0 mmol/L Calcium Level 10.0 8.7-10.4 mg/dL Magnesium Level 2.3 1.6-2.6 mg/dL Total Bilirubin 0.3 0.2-1.0 mg/dL Aspartate Amino Transferase (AST) 47 H 13-40 U/L Alanine Aminotransferase (ALT) 40 7-40 U/L Alkaline Phosphatase 95 46-116 U/L B-Type Natriuretic Peptide 49.87 0-100 pg/mL Total Protein 7.4 5.7-8.2 g/dL Albumin 5.0 H 3.2-4.8 g/dL POC Glucose 183 H 70-106 mg/dl [address] [address] Ph: [phone] DIAGNOSTIC IMAGING Diagnostic Imaging Report : [id number] Signed PATIENT: MOSES CANTOR ACCT: [id number] UNIT: [id number] : 1955 LOC: ER ROOM / BED: / AGE / SEX: 69 / F ADM STATUS: REG ER SERVICE 1342 ORDERING PHYSICIAN: BIPIN HARGROVE DO PROCEDURE(s): HWOCT - HEAD WITHOUT CONTRAST REASON: CP, DIZZY ORDER NUMBER(s): [id number], ACCESSION NUMBER(s): [id number] EXAM: CT HEAD WITHOUT CONTRAST INDICATION: CP, DIZZY TECHNIQUE: CT of the head without intravenous contrast. Radiation Dose : 1. Head: CT Dose: CTDI volume is 55 mGy. Dose-length product is 1089.1 mGy*cm The dose indicators for CT are the volume Computed Tomography (CT) Dose Index (CTDIvol) and the Dose Length Product (DLP), and are measured in units of mGy and mGy-cm, respectively. These indicators are not patient dose, but values generated from the CT scanner acquisition factors. The report includes radiation exposure data for exposures received during this examination. COMPARISON: CT HEAD WITHOUT CONTRAST on DOS: 05/18/23, MRI BRAIN HEAD WO CONTRAST on DOS: 05/18/23 FINDINGS: There is no evidence of acute intracranial hemorrhage, extra-axial collection, mass effect, midline shift, herniation or hydrocephalus. The ventricles, sulci and cisterns are age appropriate. The jimenez-white differentiation is intact. The visualized paranasal sinuses and mastoid air cells are clear. The surrounding soft tissues and osseous structures are unremarkable. IMPRESSION: No acute intracranial abnormality. Radiation optimization: All CT scans at this facility use at least one of these dose optimization techniques: automated exposure control mA and/or kV adjustment per patient size (includes targeted exams where dose is matched to clinical indication) or iterative reconstruction. ATED BY: ARIAS LOJA MD DICTATED DATE/TIME: 06/30/251416 SIGNED BY: ARIAS LOJA MD SIGNED DATE/TIME: 06/30/251416 PATIENT: MOSES CANTOR ACCT: [id number] UNIT: [id number] : 1955 LOC: ER ROOM / BED: / AGE / SEX: 69 / F ADM STATUS: REG ER SERVICE 1342 ORDERING PHYSICIAN: BIPIN HARGROVE DO PROCEDURE(s): CXRP - CHEST PORTABLE REASON: CP, DIZZY ORDER NUMBER(s): [id number], ACCESSION NUMBER(s): [id number] EXAM: XY CHEST PORTABLE HISTORY: CP, DIZZY COMPARISON: XY CHEST TWO VIEWS ROUTINE on DOS: 08/06/24, XY CHEST PORTABLE on DOS: 06/24/24, XY CHEST PORTABLE on DOS: 04/05/24, XY CHEST PORTABLE on DOS: 06/24/23, XY CHEST PORTABLE on DOS: 06/16/23 TECHNIQUE: Portable AP view of the chest was performed. FINDINGS: No pneumothorax, consolidative infiltrates, or pulmonary edema. There is mild relative elevation of the left hemidiaphragm. The heart is not enlarged. There is thoracic degenerative disc disease. There is mild thoracic dextroscoliosis. IMPRESSION: No acute intrathoracic process. ATED BY: FLY GLASGOW MD DICTATED DATE/TIME: 06/30/251403 SIGNED BY: FLY GLASGOW MD SIGNED DATE/TIME: 06/30/251403 Time of 1ST Reevaluation: 15:25 Reevaluation 1ST: Unchanged Time of 2ND Reevaluation: 15:34 (The case was discussed with the [facility] admitting team (HPI, physical exam, labs and diagnostic tests that were available at the time of disposition, ED course, treatment plan) on the phone. They agreed to transfer the patient to their service by ALS for further evaluation and treatment. Dr. kim. Authorization number is- [id number]) Reevaluation 2ND: Improved Patient Education/Counseling: Diagnosis, Treatment Family Education/Counseling: No Family Present Comments MDM: patient presented with the above HPI.--cardiac----workup was initiated. patient was found with the above mentioned diagnosis. the following medications were ordered: please refer to order lists of meds and tests obtained by myself Dr. Hargrove. Patient ED course and VS have been stabilized. Patient has been reassessed in the ED and remained in a stable condition. Pertinent incidental findings were discussed with the patient and/or family. Patient/family voices understanding and is agreeable with plan. Patient has been observed in the ED adequate length of time to insure improvement/stability. Escalation of care considered: Consideration of escalation to observation or admission [facility] facility was contacted the patient was transferred to [facility] per insurance requirement for further evaluation and treatment of her presentation. All the reports of any imaging studies that were ordered by myself were reviewed by myself. Departure 1 Departure Time of Disposition: 15:32 Impression: Primary Impression: Chest pain at rest Additional Impression: Dizziness Disposition: 02 SHORT TERM HOSPITAL Condition: Guarded Discharged With: Self Critical Care Note Critical Care Time?: No Heart Score Heart Score: Heart Score Response (Comments) Value History Moderate Suspicious 1 EKG Normal 0 Age >65 2 Risk Factors >3 or Hx ASHD 2 Troponin Normal limit 0 Total 5 I personally scribed for BIPIN HARGROVE DO ([email or web address]) on 06/30/25 at 15:08. Electronically submitted by Efrain Andre ([email or web address]). I personally scribed for BIPIN HARGROVE DO ([email or web address]) on 06/30/25 at 16:08. Electronically submitted by Efrain Andre ([email or web address]). BIPIN HARGROVE DO Jun 30, 2025 15:08
[2025-06-30 19:35] VITALS: BP 158/70; PULSE 84; RESP 17; TEMP 98.1; O2SAT 96
--- NOTE | 2025-07-02 13:08 | ECG ---
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
== END 2025-06-30 20:42 | disposition short-term general hospital (02) ==
LOC: ER 12:33
DX: R07.89 Other chest pain (principal); R42 Dizziness and giddiness; R11.0 Nausea; I10 Essential (primary) hypertension; D64.9 Anemia, unspecified; E78.5 Hyperlipidemia, unspecified; E87.8 Other disorders of electrolyte and fluid balance, not elsewhere classified; I21.9 Acute myocardial infarction, unspecified; J45.909 Unspecified asthma, uncomplicated; Z87.440 Personal history of urinary (tract) infections; Z90.49 Acquired absence of other specified parts of digestive tract; Z90.710 Acquired absence of both cervix and uterus; Z95.5 Presence of coronary angioplasty implant and graft
CPT/HCPCS: 36415; 70450; 71045; 80053; 82947; 82962; 83605; 83735; 83880; 84484; 85025; 93005

== ENCOUNTER 2025-08-19 08:00 | Emergency (ER) | payer OTHER ==
[~2025-08-19] VITALS: Ht 167.6 cm; Wt 81.5 kg
--- NOTE | 2025-08-19 08:08 | ECG ---
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
--- NOTE | 2025-08-19 08:21 | ED.PDOC ---
HPI Comments HPI: This is a 69 year old female presenting to the ED with chief complaint of chest pain. Patient reports that she has been experiencing sharp, mid back pain that radiates to her sternum since 0730 this morning, persisting till now. Patient relays that she had taken Aspirin along with a [place] this morning with no relief in pain. Patient denies any SOB, dizziness, syncope, or abdominal pain. Initial Vitals BP: 137/80 HR: 71 RR: 18 O2: 97% Temp: 98F Past Medical History: Asthma, CAD, Angina, Breast Cancer, GERD, HLD, HTN, Liver Cirrhosis, Hypothyroidism, Fibromyalgia, Chronic back pain, mitochondrial cardiomyopathy. Past Surgical History: Appendectomy, Cholecystectomy, Hysterectomy, Cardiac Stents Social History: Denies ETOH, smoking, and drug use. Medications: Reviewed Allergies: Ciprofloxacin, Doxycycline, Gentamicin, Iodine, Metronidazole, Sulfa HPI: Poor Historian. REVIEW OF SYSTEMS: CONSTITUTIONAL: Denies acute: fever, diaphoresis, chills, generalized weakness. HEAD: Denies acute: headache, photophobia Eyes: Denies acute: Double vision, vision loss, eye pain, eye discharge. EARS: Denies acute: tinnitus, hearing loss, ear discharge, ear pain, THROAT: Denies acute: sore throat, swelling, difficulty swallowing , pain with swallowing, change in voice. NECK: Denies acute: neck pain, neck swelling, stiff neck. HEART: Denies acute : palpitations, LUNGS: Denies acute: SOB, wheezing, cough, hemoptysis ABDOMEN: Denies acute: abdominal pain, Nausea, Vomiting, diarrhea, melena , hematemesis, hematochezia SKIN: Denies acute: rash, redness, lesions, itchiness. EXTREMITIES: Denies acute: calf pain, numbness, tingling, weakness, denies pain in extremity. Denies acute: Low back pain. Neuro: Denies acute: focal neurological deficit, motor or sensory focal neurological deficit, tremors, seizure like activity, confusion, dizziness, change in mental status, loss of bowel or bladder function, cauda equina like symptoms. : Denies acute: dysuria, hematuria, flank pain, increase in urinary frequency. PSYCH: Denies acute: hallucination, suicidal ideation, homicidal ideation. FEMALE: Denies acute: abnormal vaginal bleeding, foul odor, unusual discharge. PHYSICAL EXAM: General: ---moderate-----acute distress, awake and alert. Head: normocephalic, atraumatic. Neck: supple, trachea is midline, no swelling. Throat: Normal phonation. Eyes:, no erythema, no purulent discharge, no proptosis, no icterus. Heart: regular rate, regular rhythm, no significant murmur appreciated. Lungs: no apparent respiratory distress, Able to speak in full sentences. No wheezing, no rhonchi, no crackles. No stridors Clear to auscultation bilaterally. Abdomen: non tender to palpation, non distended, soft, no guarding, no rebound, + bowel sounds. Neuro: Awake, Alert, oriented to name, self, situation, follows commands GCS=15. Speech is normal. Skin: no petechia, no purpura, no cyanosis, non-pale, not jaundice. Lower extremities: --no - Pitting edema no deformity, no focal swelling, no calf TTP. Makes eye contact. moves all four extremities. Face: no apparent facial droop. Ambulating in the ED independently. ED COURSE: DISCLAIMER: This medical document was created using an electronic medical record system with voice recognition software and computerized dictation system. Although this document has been carefully reviewed, there might still be some phonetic and typographical errors. Occasional wrong-word or "sound-alike" substitutions may have occurred due to the inherent limitations of voice recognition software. These areas are purely typographical due to imperfections of the software programs and do not reflect any compromise in the patient's medical care. Please read the chart carefully and recognize, using context, where these substitutions have occurred. Chief Complaint: Chest Pain Time Seen by MD: 08:15 Primary Care Provider: Steve Reviewed Notes: Medications, Allergies Allergies: Coded Allergies: Ciprofloxacin (Verified Allergy, Unknown, 03/28/19) Doxycycline (Verified Allergy, Unknown, 06/14/23) Gentamicin (Verified Allergy, Unknown, 03/28/19) Iodine (Verified Allergy, Unknown, 06/14/23) Metronidazole (Verified Allergy, Unknown, 03/28/19) Sulfamethoxazole w/Trimethoprim (Verified Allergy, Unknown, 03/28/19) Uncoded Allergies: OXTRO (Allergy, Unknown, 03/28/19) "RASH" Home Meds Active Scripts Bismuth Subsalicylate (PEPTO-BISMOL TO-GO) 262 Mg Chw, 262 MG PO TID for 5 Days, #20 TAB.CHEW Prov:SABRINA SCOTT MD 08/06/24 Metoclopramide Hcl (Reglan) 10 Mg Tab, 10 MG PO BID for 5 Days, #10 TAB Prov:SABRINA SCOTT MD 08/06/24 Reported Medications Cholecalciferol (VITAMIN D3) 2,000 Unit Tab, 1 TAB PO DAILY, #30 TAB 5 Refills 06/15/23 Ascorbic Acid (VITAMIN C TABLET) 500 Mg Tb, 1 TAB PO DAILY 06/15/23 Multiple Vitamins W/ Minerals (Multivitamin) 1 Tab Tab, 1 TAB PO DAILY, TAB 06/15/23 Docusate Sodium (Colace) 100 Mg Cap, 1 CAP PO DAILY, #30 CAP 06/15/23 Epinephrine (Anaphylaxis) (Auvi-Q) 0.1 Mg/0.1 Ml Inj, 0.1 MG IJ O PRN for Anaphylaxis for 1 Day, #1 INJ 06/15/23 Nitroglycerin (NTROSTAT SUBLINGUAL) 0.4 Mg Sl, 0.4 MG SL PRN, TAB *MAY REPEAT EVERY 5 MINUTES X 3 TOTAL IF NO RELIEF, INITIATE ANALGESIC THERAPY. NOTIFY PHYSICIAN *Do not crush. 06/15/23 Hydroxyzine HCl (Hydroxyzine Hydrochloride) 25 Mg Tab, 0.5 MG PO Q8HP, TAB 06/15/23 Dicyclomine Hcl (BENTYL CAPSULE) 10 Mg Cp, 1 CAP PO Q8HP, #90 CAP 11 Refills 06/15/23 Baclofen (Baclofen) 20 Mg Tab, 0.5 TAB PO HS, #90 TAB 2 Refills 06/15/23 Hydrocodone-Acetaminophen (Hydrocodone Bitartrate/AC 10-325 mg) 1 Tab Tab, 1 TAB PO Q8HP PRN for PAIN SCALE 7 THRU 10, TAB 06/15/23 Gabapentin (Gabapentin) 300 Mg Cap, 1 CAP PO TID 06/15/23 Rosuvastatin Calcium (Crestor) 5 Mg Tab, 1 TAB PO HS 06/15/23 Pantoprazole Sodium Sesquihydr (Protonix) 40 Mg Tab, 40 MG PO BID 06/15/23 Levothyroxine Sodium (Levothyroxine Sodium) 125 Mcg Tab, 1 TAB PO DAILY 06/15/23 Amlodipine Besylate (NORVASC TABLET) 5 Mg Tb, 5 MG PO DAILY, TAB 06/15/23 Aspirin (Asa) 81 Mg Ch, 1 TAB PO DAILY 03/27/13 Atenolol (Atenolol) 25 Mg Tab, 1 DAILY 11/09/10 Information Source: Patient Mode of Arrival: Ambulatory EKG EKG : Pulse Rate (adult): 71 Cardiac Rhythm: NSR Was a procedure done? Was a procedure done?: No CP Differential Dx Differential Diagnosis: N/A Differential Diagnosis: Other (Ddx include but not limitied to gastritis, musculoskeletal pain, radiculopathy, atypical chest pain, dissection, aneurysm, ACS, unstable angina, hiatal hernia, GERD, anxiety, costochondritis, PE, pneumothroax, neoplasm, cardiac ischemia, drug abuse, anemia.) X-Ray, Labs, Meds, VS Vital Signs Date Time Temp Pulse Resp B/P (MAP) Pulse Ox O2 Delivery O2 Flow Rate FiO2 08/19/25 17:23 97.8 71 16 148/77 (100) 95 97.8 08/19/25 13:45 97.7 60 16 130/65 (86) 96 97.7 08/19/25 11:14 59 08/19/25 09:08 63 08/19/25 08:20 71 08/19/25 08:12 98.0 68 18 137/80 97 98.0 08/19/25 08:06 71 Lab Test 08/19/25 12:04 08/19/25 11:25 08/19/25 09:17 08/19/25 08:21 Range/Units Lactic Acid Level 1.0 2.5 *H 0.4-2.0 mmol/L Troponin I High Sensitivity 5 5 4 </=34 ng/L Lipase 29 12-53 U/L White Blood Count 6.5 4.4-10.8 10^3/uL Red Blood Count 5.03 4.0-5.20 10^6/uL Hemoglobin 15.5 12.2-16.2 g/dL Hematocrit 45.7 36.0-46.0 % Mean Corpuscular Volume 90.9 80.0-100.0 fL Mean Corpuscular Hemoglobin 30.9 28.0-32.0 pg Mean Corpuscular Hemoglobin Concent 34.0 32.0-36.0 g/dL Red Cell Distribution Width 13.5 11.8-14.3 % Platelet Count 205 140-450 10^3/uL Mean Platelet Volume 6.6 L 6.9-10.8 fL Neutrophils (%) (Auto) 75.9 37.0-80.0 % Lymphocytes (%) (Auto) 17.7 10.0-50.0 % Monocytes (%) (Auto) 4.8 0.0-12.0 % Eosinophils (%) (Auto) 1.3 0.0-7.0 % Basophils (%) (Auto) 0.3 0.0-2.0 % Neutrophils # (Auto) 4.9 1.6-8.6 10 ^3/uL Lymphocytes # (Auto) 1.1 0.4-5.4 10 ^3/uL Monocytes # (Auto) 0.3 0-1.3 10 ^3/uL Eosinophils # (Auto) 0.1 0-0.8 10 ^3/uL Basophils # (Auto) 0 0-0.2 10 ^3/uL Nucleated Red Blood Cells 0.1 % Sodium Level 138 136-145 mmol/L Potassium Level 4.0 3.5-5.1 mmol/L Chloride Level 103 98-107 mmol/L Carbon Dioxide Level 25 20-31 mmol/L Anion Gap 10 5-15 Blood Urea Nitrogen 10 9-23 mg/dL Creatinine 0.61 0.550-1.02 mg/dL Glomerular Filtration Rate Calc 96 >90 mL/min BUN/Creatinine Ratio 16.4 10.0-20.0 Serum Glucose 145 H 74-106 mg/dL Calcium Level 9.9 8.7-10.4 mg/dL Total Bilirubin 0.6 0.2-1.0 mg/dL Aspartate Amino Transferase (AST) 46 H 13-40 U/L Alanine Aminotransferase (ALT) 31 7-40 U/L Alkaline Phosphatase 83 46-116 U/L Total Protein 7.7 5.7-8.2 g/dL Albumin 4.8 3.2-4.8 g/dL [facility] [id number] [facility] [address] Ph: [phone] DIAGNOSTIC IMAGING Diagnostic Imaging Report : [id number] Signed PATIENT: MOSES CANTOR ACCT: [id number] UNIT: [id number] : 1955 LOC: ER ROOM / BED: / AGE / SEX: 69 / F ADM STATUS: [facility] ER SERVICE 2 ORDERING PHYSICIAN: BIPIN HARGROVE DO PROCEDURE(s): CXRP - CHEST PORTABLE REASON: cp ORDER NUMBER(s): [id number], ACCESSION NUMBER(s): [id number] CHEST RADIOGRAPH Indication: cp Technique: Single frontal view of the chest was obtained COMPARISON: XY CHEST PORTABLE on DOS: 06/30/25, XY CHEST TWO VIEWS ROUTINE on DOS: 08/06/24, XY CHEST PORTABLE on DOS: 06/24/24, XY CHEST PORTABLE on DOS: 04/05/24, XY CHEST PORTABLE on DOS: 06/24/23 FINDINGS: Lines and Tubes: None Lungs: Clear Pleura: No effusion. No pneumothorax. Cardiomediastinal contours: Unremarkable Bones: Unremarkable IMPRESSION: No acute disease. ATED BY: ARIAS LOJA MD DICTATED DATE/TIME: 08/19/25849 SIGNED BY: ARIAS LOJA MD SIGNED DATE/TIME: 08/19/25849 CC: Time of 1ST Reevaluation: 09:15 Reevaluation 1ST: Unchanged Time of 2ND Reevaluation: 14:07 (The case was discussed with the [place] admitting team (HPI, physical exam, labs and diagnostic tests that were available at the time of disposition, ED course, treatment plan) on the phone. They agreed to transfer the patient to their service by ALS for further evaluation and treatment. Dr. Estrada--. Authorization number is--[id number]) Patient Education/Counseling: Diagnosis, Treatment Family Education/Counseling: No Family Present Comments MDM: patient presented with the above HPI.----cardiac--workup was initiated. patient was found with the above mentioned diagnosis. the following medications were ordered: please refer to order lists of meds and tests obtained by myself Dr. Hargrove. Patient ED course and VS have been stabilized. Patient has been reassessed in the ED and remained in a stable condition. Pertinent incidental findings were discussed with the patient and/or family. Patient/family voices understanding and is agreeable with plan. Patient has been observed in the ED adequate length of time to insure improvement/stability. Escalation of care considered: Consideration of escalation to observation or admission Patient was ADMITTED to the medicine team for further evaluation and treatment of their presentation. All the reports of any imaging studies that were ordered by myself were reviewed by myself. Departure 1 Departure Time of Disposition: 09:00 Impression: Primary Impression: Chest pain Disposition: ADMITTED INPATIENT Admit to: Tele Condition: Guarded Discharged With: Self Critical Care Note Critical Care Time?: No Heart Score Heart Score: Heart Score Response (Comments) Value History Highly Suspicious 2 EKG Normal 0 Age >65 2 Risk Factors >3 or Hx ASHD 2 Troponin Normal limit 0 Total 6 I personally scribed for BIPIN HARGROVE DO ([email or web address]) on 08/19/25 at 08:20. Electronically submitted by Jaron Pierre ([email or web address]). I personally scribed for BIPIN HARGROVE DO ([email or web address]) on 08/19/25 at 08:42. Electronically submitted by Jaron Pierre ([email or web address]). I personally scribed for BIPIN HARGROVE DO ([email or web address]) on 08/19/25 at 11:07. Electronically submitted by Jaron Pierre ([email or web address]). BIPIN HARGROVE DO Aug 19, 2025 08:20
[2025-08-19 08:43] LABS: Hematocrit 45.7 % (36.0-46.0); Hemoglobin 15.5 g/dL (12.2-16.2); Mean Corpuscular Hemoglobin 30.9 pg (28.0-32.0); Mean Corpuscular Volume 90.9 fL (80.0-100.0); Nucleated Red Blood Cells % 0.1 %
--- NOTE | 2025-08-19 08:52 | DVH ---
CHEST RADIOGRAPH Indication: cp Technique: Single frontal view of the chest was obtained COMPARISON: XY CHEST PORTABLE on DOS: 06/30/25, XY CHEST TWO VIEWS ROUTINE on DOS: 08/06/24, XY CHEST P ORTABLE on DOS: 06/24/24, XY CHEST PORTABLE on DOS: 04/05/24, XY CHEST PORTABLE on DOS: 06/24/23 FINDINGS: Lines and Tubes: None Lungs: Clear Pleura: No effusion. No pneumothorax. Cardiomediastinal contours: Unremarkable Bones: Unremarkable IMPRESSION: No acute disease.
[2025-08-19 08:56] LABS: Alanine Aminotransferase 31 U/L (7-40); Alkaline Phosphatase 83 U/L (46-116); Anion Gap 10 (5-15); BUN/Creatinine Ratio 16.4 (10.0-20.0); Bilirubin, Total 0.6 mg/dL (0.2-1.0); Blood Urea Nitrogen 10 mg/dL (9-23); Calcium 9.9 mg/dL (8.7-10.4); Carbon Dioxide 25 mmol/L (20-31); Chloride 103 mmol/L (98-107); Potassium 4.0 mmol/L (3.5-5.1); Sodium 138 mmol/L (136-145); Total Protein 7.7 g/dL (5.7-8.2)
[2025-08-19 08:57] LABS: Albumin 4.8 g/dL (3.2-4.8); Glucose 145 mg/dL (74-106)
[2025-08-19] MEDS: LIDOCAINE VISCOUS 2% 15ML UD PO ONE (09:11)
[2025-08-19] MEDS: SUCRALFATE 1 GM TAB PO ONE (09:11)
[2025-08-19] MEDS: PANTOPRAZOLE 40 MG TAB PO ONE (09:11)
--- NOTE | 2025-08-19 09:11 | ECG ---
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
[2025-08-19 10:51] LABS: Lactic Acid w/Reflex 2.5 mmol/L (0.4-2.0)
[2025-08-19] MEDS: SODIUM CHLORIDE 0.9% 1,000 ML IV ONE (11:00)
--- NOTE | 2025-08-19 11:16 | ECG ---
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
[2025-08-19 17:23] VITALS: BP 148/77; PULSE 71; RESP 16; TEMP 97.8; O2SAT 95
== END 2025-08-19 17:18 | disposition short-term general hospital (02) ==
LOC: ER 08:07
DX: R07.89 Other chest pain (principal); J45.909 Unspecified asthma, uncomplicated; I10 Essential (primary) hypertension; E78.5 Hyperlipidemia, unspecified; E03.9 Hypothyroidism, unspecified; G89.29 Other chronic pain; I25.10 Atherosclerotic heart disease of native coronary artery without angina pectoris; I42.9 Cardiomyopathy, unspecified; K74.60 Unspecified cirrhosis of liver; M79.7 Fibromyalgia; Z79.899 Other long term (current) drug therapy; Z95.5 Presence of coronary angioplasty implant and graft; Z88.8 Allergy status to other drugs, medicaments and biological substances; Z85.3 Personal history of malignant neoplasm of breast; Z79.82 Long term (current) use of aspirin; Z90.710 Acquired absence of both cervix and uterus; Z90.49 Acquired absence of other specified parts of digestive tract; Z88.2 Allergy status to sulfonamides; Z88.1 Allergy status to other antibiotic agents; Z79.890 Hormone replacement therapy
CPT/HCPCS: 36415; 71045; 80053; 83605; 83690; 84484; 85025; 93005; 96360; 99285; J7030

== ENCOUNTER 2025-10-14 19:05 | Emergency (ER) | payer OTHER ==
[~2025-10-14] VITALS: Ht 167.6 cm; Wt 83.9 kg
--- NOTE | 2025-10-14 19:30 | ECG ---
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
--- NOTE | 2025-10-14 19:53 | ED.PDOC ---
General HPI Comments 69 year old female with PMHx asthma, CAD, breast cancer, GERD, HLD, HTN, liver disease, thyroid disease, frequent UTIs, presents to the ED with a chief complaint of flank pain onset 5 days. Patient states she began experiencing LT sided flank pain as well as urinary frequency, pelvic pain and nausea for the past 5 days, has worsened the past 2 days. Upon ED arrival patient was hypertensive with BP of 174/83, currently rates pain 6/10. Denies vomiting, diarrhea, headache, dizziness, hematuria, fever, chills, chest pain, shortness of breath. No other symptoms or modifying factors present at this time. Chief Complaint: Flank Pain Time Seen by MD: 19:40 Primary Care Provider: Steve Reviewed notes: Medications, Allergies Allergies: Coded Allergies: Ciprofloxacin (Verified Allergy, Unknown, 03/28/19) Doxycycline (Verified Allergy, Unknown, 06/14/23) Gentamicin (Verified Allergy, Unknown, 03/28/19) Iodine (Verified Allergy, Unknown, 06/14/23) Metronidazole (Verified Allergy, Unknown, 03/28/19) Sulfamethoxazole w/Trimethoprim (Verified Allergy, Unknown, 03/28/19) Uncoded Allergies: OXTRO (Allergy, Unknown, 03/28/19) "RASH" Home Meds Active Scripts Bismuth Subsalicylate (PEPTO-BISMOL TO-GO) 262 Mg Chw, 262 MG PO TID for 5 Days, #20 TAB.CHEW Prov:SABRINA SCOTT MD 08/06/24 Metoclopramide Hcl (Reglan) 10 Mg Tab, 10 MG PO BID for 5 Days, #10 TAB Prov:SABRINA SCOTT MD 08/06/24 Reported Medications Cholecalciferol (VITAMIN D3) 2,000 Unit Tab, 1 TAB PO DAILY, #30 TAB 5 Refills 06/15/23 Ascorbic Acid (VITAMIN C TABLET) 500 Mg Tb, 1 TAB PO DAILY 06/15/23 Multiple Vitamins W/ Minerals (Multivitamin) 1 Tab Tab, 1 TAB PO DAILY, TAB 06/15/23 Docusate Sodium (Colace) 100 Mg Cap, 1 CAP PO DAILY, #30 CAP 06/15/23 Epinephrine (Anaphylaxis) (Auvi-Q) 0.1 Mg/0.1 Ml Inj, 0.1 MG IJ O PRN for Anaphylaxis for 1 Day, #1 INJ 06/15/23 Nitroglycerin (NTROSTAT SUBLINGUAL) 0.4 Mg Sl, 0.4 MG SL PRN, TAB *MAY REPEAT EVERY 5 MINUTES X 3 TOTAL IF NO RELIEF, INITIATE ANALGESIC THERAPY. NOTIFY PHYSICIAN *Do not crush. 06/15/23 Hydroxyzine HCl (Hydroxyzine Hydrochloride) 25 Mg Tab, 0.5 MG PO Q8HP, TAB 06/15/23 Dicyclomine Hcl (BENTYL CAPSULE) 10 Mg Cp, 1 CAP PO Q8HP, #90 CAP 11 Refills 06/15/23 Baclofen (Baclofen) 20 Mg Tab, 0.5 TAB PO HS, #90 TAB 2 Refills 06/15/23 Hydrocodone-Acetaminophen (Hydrocodone Bitartrate/AC 10-325 mg) 1 Tab Tab, 1 TAB PO Q8HP PRN for PAIN SCALE 7 THRU 10, TAB 06/15/23 Gabapentin (Gabapentin) 300 Mg Cap, 1 CAP PO TID 06/15/23 Rosuvastatin Calcium (Crestor) 5 Mg Tab, 1 TAB PO HS 06/15/23 Pantoprazole Sodium Sesquihydr (Protonix) 40 Mg Tab, 40 MG PO BID 06/15/23 Levothyroxine Sodium (Levothyroxine Sodium) 125 Mcg Tab, 1 TAB PO DAILY 06/15/23 Amlodipine Besylate (NORVASC TABLET) 5 Mg Tb, 5 MG PO DAILY, TAB 06/15/23 Aspirin (Asa) 81 Mg Ch, 1 TAB PO DAILY 03/27/13 Atenolol (Atenolol) 25 Mg Tab, 1 DAILY 11/09/10 Information Source: Patient Mode of Arrival: Ambulatory Severity: Moderate Timing: Days Duration: Since onset Prehospital treatment: None Onset: Spontaneous Symptoms: Frequency History of: UTI Location: (L)Flank associated signs and symptoms: Abdominal Pain, Flank Pain, Frequency Past Medical History PAST MEDICAL HISTORY: Asthma, CAD, Cancer, GERD, High Lipids, HTN, Liver, Thyroid, UTI'S Surgical History: Appendectomy, Cholecystectomy, Hysterectomy, PTCA 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 WIRE MACHINE OPERATOR History Family History Family History: Reviewed,noncontributory to illness, Family hx of DM, Family hx of heart cristopher, Family hx of HTN Social History Smoker: Non-Smoker Alcohol: Denies ETOH Use Drugs: Denies Drug Use Lives In: Home Constitutional: denies: chills, diaphoresis, fatigue, fever, malaise, sweats, weakness, others EENTM: denies: blurred vision, double vision, ear bleeding, ear discharge, ear drainage, ear pain, ear ringing, eye pain, eye redness, hearing loss, mouth pain, mouth swelling, nasal discharge, nose bleeding, nose congestion, nose pain, photophobia, tearing, throat pain, throat swelling, voice changes, others Respiratory: denies: cough, hemoptysis, orthopnea, SOB at rest, shortness of breath, SOB with excertion, stridor, wheezing, others Cardiovascular: denies: chest pain, dizzy spells, diaphoresis, Dyspnea on exertion, edema, irregular heart beat, left arm pain, lightheadedness, palpitations, PND, syncope, others Gastrointestinal: reports: abdominal pain (LUQ); denies: abdomen distended, blood streaked bowels, constipated, diarrhea, dysphagia, difficulty swallowing, hematemesis, melena, nausea, poor appetite, poor fluid intake, rectal bleeding, rectal pain, vomiting, others Genitourinary: reports: flank pain, frequency, pain (pelvic); denies: abnormal vagina bleeding, burning, dyspareunia, dysuria, hematuria, incontinence, , vagina discharge, urgency, others Neurological: denies: dizziness, fainting, headache, left sided numbness, left sided weakness, numbness, paresthesia, pre-existing deficit, right sided numbness, right sided weakness, seizure, speech problems, tingling, tremors, weakness, others Musculoskeletal: denies: back pain, gout, joint pain, joint swelling, muscle pain, muscle stiffness, neck pain, others Integumetry: denies: bruises, change in color, change in hair/nails, dryness, laceration, lesions, lumps, rash, wounds, others Allergic/Immunocompromised: denies: Difficulty Healing, Frequent Infections, Hives, Itching, others Hematologic/Lymphatic: denies: anemia, blood clots, easy bleeding, easy bruising, swollen glands, others Endocrine: denies: excessive hunger, excessive sweating, excessive thirst, excessive urination, flushing, intolerance to cold, intolerance to heat, unexplained weight gain, unexplained weight loss, others Psychiatric: denies: anxiety, bipolar disorder, depression, hopeless, panic disorder, schizophrenia, sleepless, suicidal, others All Other Systems: Reviewed and Negative Physical Exam General Appearance: Normal HEENT: Normal ENT Inspection, Pharynx Normal, TMs Normal Neck: Full Range of Motion, Non-Tender, Normal, Normal Inspection Respiratory: Chest Non-Tender, Lungs Clear, No Accessory Muscle Use, No Respiratory Distress, Normal Breath Sounds Cardiovascular: No Edema, No JVD, No Murmur, No Gallop, Normal Peripheral Pulses, Regular Rate/Rhythm Breast Exam: Deferred Gastrointestinal: No Organomegaly, Non Tender, No Pulsatile Mass, Normal Bowel Sounds, Soft Genitalia: Deferred Pelvic: Deferred Rectal: Deferred Extremities: No calf tenderness, Normal capillary refill, Normal inspection, Normal range of motion, Non-tender, No pedal edema Musculoskeletal : Apperance: Normal Neurologic: Alert, senior 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 Was a procedure done?: No Differential Diagnosis Kidney stone (Female): Aortic dissection, Appendicitis, Bowel obstruction, Cho lelithiasis, Musculoskeletal pain, Pancreatitis, Pyelonephritis, Renal failure, Strain, Urinary obstruction, Urolithiasis, Other X-Ray, Labs, Meds, VS Vital Signs Date Time Temp Pulse Resp B/P (MAP) Pulse Ox O2 Delivery O2 Flow Rate FiO2 10/14/25 21:30 Room Air* 0 21 10/14/25 21:17 97.8 71 14 132/66 (88) 96 97.8 10/14/25 19:22 70 10/14/25 19:10 97.4 69 16 174/83 96 97.4 Lab Test 10/14/25 19:55 10/14/25 19:32 Range/Units White Blood Count 7.4 4.4-10.8 10^3/uL Red Blood Count 4.86 4.0-5.20 10^6/uL Hemoglobin 14.9 12.2-16.2 g/dL Hematocrit 43.6 36.0-46.0 % Mean Corpuscular Volume 89.6 80.0-100.0 fL Mean Corpuscular Hemoglobin 30.6 28.0-32.0 pg Mean Corpuscular Hemoglobin Concent 34.2 32.0-36.0 g/dL Red Cell Distribution Width 13.7 11.8-14.3 % Platelet Count 216 140-450 10^3/uL Mean Platelet Volume 6.8 L 6.9-10.8 fL Neutrophils (%) (Auto) 74.2 37.0-80.0 % Lymphocytes (%) (Auto) 17.6 10.0-50.0 % Monocytes (%) (Auto) 6.9 0.0-12.0 % Eosinophils (%) (Auto) 0.9 0.0-7.0 % Basophils (%) (Auto) 0.4 0.0-2.0 % Neutrophils # (Auto) 5.5 1.6-8.6 10 ^3/uL Lymphocytes # (Auto) 1.3 0.4-5.4 10 ^3/uL Monocytes # (Auto) 0.5 0-1.3 10 ^3/uL Eosinophils # (Auto) 0.1 0-0.8 10 ^3/uL Basophils # (Auto) 0 0-0.2 10 ^3/uL Nucleated Red Blood Cells 0.2 % Sodium Level 138 136-145 mmol/L Potassium Level 4.2 3.5-5.1 mmol/L Chloride Level 102 98-107 mmol/L Carbon Dioxide Level 28 20-31 mmol/L Anion Gap 8 5-15 Blood Urea Nitrogen 13 9-23 mg/dL Creatinine 0.58 0.550-1.02 mg/dL Glomerular Filtration Rate Calc 97 >90 mL/min BUN/Creatinine Ratio 22.4 H 10.0-20.0 Serum Glucose 106 74-106 mg/dL Calcium Level 11.0 H 8.7-10.4 mg/dL Total Bilirubin 0.4 0.2-1.0 mg/dL Aspartate Amino Transferase (AST) 44 H 13-40 U/L Alanine Aminotransferase (ALT) 34 7-40 U/L Alkaline Phosphatase 95 46-116 U/L Total Protein 7.9 5.7-8.2 g/dL Albumin 5.0 H 3.2-4.8 g/dL Lipase 31 12-53 U/L Urine Color Colorless Yellow Urine Clarity Clear Clear Urine pH 6.5 5.0-9.0 Urine Specific [place] 1.007 1.001-1.035 Urine Protein Negative Negative Urine Ketones Negative Negative Urine Blood Negative Negative /uL Urine Nitrite Negative Negative Urine Bilirubin Negative Negative Urine Urobilinogen Normal Negative mg/dL Urine Leukocyte Esterase Negative Negative /uL Urine RBC 1 0 - 4 /hpf Urine Microscopic WBC < 1 0-5 /HPF Urine Squamous Epithelial Cells None seen <5 /hpf Urine Bacteria None seen None Seen /hpf Urine Glucose Normal Normal mg/dL Current Medications Medications (Trade) Dose Ordered Sig/Lakhwinder Route Start Time Stop Time Status Last Admin Acetaminophen (Tylenol Tablet) 1,000 mg ONCE ONCE PO 10/14/25 20:00 10/14/25 20:01 DC 10/14/25 21:21 Time of 1ST Reevaluation: 20:10 Reevaluation 1ST: Unchanged Patient Education/Counseling: Diagnosis, Treatment, Prognosis Family Education/Counseling: No Family Present SEPSIS Sepsis Screen Date sepsis recognized/suspect: Oct 14, 2025 Time Sepsis recognized/suspect: 1909 Recent Procedure: No On Antibiotic Therapy: No Respiratory Rate >20: No Heart Rate >90: No Temp<36 C (96.8 F) or >38.3 C: No SBP <90 or MAP <65 mmHG: No New Acute Mental Status Change: No Is the patient on CPAP, BIPAP,: No Physician Orders Ct Ab Pel Wo Con-No Oral Or Iv (10/14/25 19:34) Vital Signs Date Time Temp Pulse Resp B/P (MAP) Pulse Ox O2 Delivery O2 Flow Rate FiO2 10/14/25 21:30 Room Air* 0 21 10/14/25 21:17 97.8 71 14 132/66 (88) 96 97.8 10/14/25 19:22 70 10/14/25 19:10 97.4 69 16 174/83 96 97.4 Laboratory Tests Test 10/14/25 19:55 White Blood Count 7.4 10^3/uL (4.4-10.8) Medications Medications Dose Ordered Sig/Lakhwinder Route Start Time Stop Time Status Last Admin Dose Admin Acetaminophen 1,000 mg ONCE ONCE PO 10/14/25 20:00 10/14/25 20:01 DC 10/14/25 21:21 Departure 1 Departure Time of Disposition: 22:00 Impression: Primary Impression: Left flank pain Disposition: 01 HOME / SELF CARE / HOMELESS Condition: Stable Discharged With: Self Critical Care Note Critical Care Time?: No Stability Stability form required: No Heart Score Heart Score: Heart Score Response (Comments) Value History N/A 0 EKG N/A 0 Age N/A 0 Risk Factors N/A 0 Troponin N/A 0 Total 0 I personally scribed for MANINDER MANZANO MD ([email or web address]) on 10/14/25 at 19:53. Electronically submitted by Christine Murphy ([email or web address]). MANINDER MANZANO MD Oct 14, 2025 19:53
[2025-10-14 20:07] LABS: Hematocrit 43.6 % (36.0-46.0); Hemoglobin 14.9 g/dL (12.2-16.2); Mean Corpuscular Hemoglobin 30.6 pg (28.0-32.0); Mean Corpuscular Volume 89.6 fL (80.0-100.0); Nucleated Red Blood Cells % 0.2 %
[2025-10-14 20:24] LABS: Alanine Aminotransferase 34 U/L (7-40); Alkaline Phosphatase 95 U/L (46-116); Anion Gap 8 (5-15); BUN/Creatinine Ratio 22.4 (10.0-20.0); Bilirubin, Total 0.4 mg/dL (0.2-1.0); Blood Urea Nitrogen 13 mg/dL (9-23); Carbon Dioxide 28 mmol/L (20-31); Chloride 102 mmol/L (98-107); Lipase 31 U/L (12-53); Potassium 4.2 mmol/L (3.5-5.1); Sodium 138 mmol/L (136-145); Total Protein 7.9 g/dL (5.7-8.2)
[2025-10-14 20:30] LABS: Albumin 5.0 g/dL (3.2-4.8); Calcium 11.0 mg/dL (8.7-10.4); Glucose 106 mg/dL (74-106)
--- NOTE | 2025-10-14 20:39 | DVH ---
Exam: CT CT AB PEL WO CON-NO ORAL OR IV History: flank pain Comparison Study: CT CT AB PEL WO CON-NO ORAL OR IV on DOS: 08/06/24, CT ABD PELVIS WO CONTRAST on DOS: 07/22/22 TECHNIQUE: Multidetector CT of the abdomen AND PELVIS without IV contrast. Axial, coronal and sagittal multiplanar reformats were obtained from the axial data set by the technologist. Radiation Dose Information: CT Dose: CTDI volume is 24.39 mGy. Dose-length product is 1347.41 mGy*cm FINDINGS: Bibasilar atelectasis/ scarring. Partially visualized heart is unremarkable. Status post cholecystectomy. The common bile duct measures up to 1 cm with a pancreatic head which is within normal limits for post cholecystectomy state. Minimal intrahepatic biliary ductal dilatation. Otherwise, liver, spleen, pancreas and adrenal glands are unremarkable. Mild bilateral renal pelviectasis. Otherwise, kidneys, ureters and urinary bladder unremarkable. Status post hysterectomy. Stomach is unremarkable. Small bowel loops are unremarkable. Appendix is not definitely visualized. Small to moderate amount of fecal material within the colon. Sigmoid diverticulosis without diverticulitis. Distal rectal wall thickening. No evidence of intraperitoneal free air or free fluid. No evidence of aortic aneurysm. [id number] atherosclerotic calcification of the aorta and bilateral iliacs. No significant lymphadenopathy. Tiny fat containing umbilical hernia. The soft tissues unremarkable. No evidence of acute osseous abnormalities. IMPRESSION: Distal rectal wall thickening which may be due to inadequate distention with proctitis/ neoplasm not excluded. Mild bilateral renal pelviectasis. Small to moderate amount of fecal material within the colon. Sigmoid diverticulosis without diverticulitis.
[2025-10-14 20:40] LABS: Urine Protein, UAD Negative (Negative)
[2025-10-14 21:17] VITALS: BP 132/66; PULSE 71; RESP 14; TEMP 97.8; O2SAT 96
[2025-10-14] MEDS: ACETAMINOPHEN 325 MG TAB PO ONE (21:21)
== END 2025-10-14 21:30 | disposition home or self-care (01) ==
LOC: ER 19:05
DX: R10.A2 Flank pain, left side (principal); J45.909 Unspecified asthma, uncomplicated; I25.10 Atherosclerotic heart disease of native coronary artery without angina pectoris; I10 Essential (primary) hypertension; E78.5 Hyperlipidemia, unspecified; Z79.899 Other long term (current) drug therapy; Z79.890 Hormone replacement therapy; Z79.82 Long term (current) use of aspirin; Z90.710 Acquired absence of both cervix and uterus; Z90.49 Acquired absence of other specified parts of digestive tract; Z88.8 Allergy status to other drugs, medicaments and biological substances; Z88.1 Allergy status to other antibiotic agents; Z87.440 Personal history of urinary (tract) infections; Z88.2 Allergy status to sulfonamides
CPT/HCPCS: 36415; 74176; 80053; 81001; 83690; 85025; 93005